=== PATIENT | female | born 1975 | race Hispanic/Latino ===

== ENCOUNTER 2016-08-03 07:44 | Observation (INO) | payer MEDICAID ==
[2016-08-03 07:48] VITALS: BMI 50.3
[2016-08-03] MEDS ORDERED: Sodium Chloride 0.9% 1,000 ML IV STA (08:11)
--- NOTE | 2016-08-03 08:12 | ED PDOC ---
HPI: Abdomen Time Seen by Provider: 08/03/16 07:46 Chief Complaint (Nursing): Abdominal Pain Chief Complaint (Provider): Abdominal Pain History Per: Patient History/Exam Limitations: no limitations Onset/Duration Of Symptoms: Hrs Current Symptoms Are (Timing): Still Present Severity: Moderate Location Of Pain/Discomfort: RLQ Quality Of Discomfort: "Pain" Associated Symptoms: Nausea, Vomiting, Diarrhea. denies: Fever, Loss Of Appetite, Back Pain, Urinary Symptoms Exacerbating Factors: None Alleviating Factors: None Additional Complaint(s): Patient is a 41 year old female with a history of asthma, presents to ED for evaluation of abdominal pain that began last night at 1800. Patient reports pain is RLQ with nausea, vomiting and diarrhea. Denies urinary changes, back pain, fever or chills. Notes she took no pain medication at home. Past Medical History Reviewed: Historical Data, Nursing Documentation, Vital Signs Vital Signs: Last Vital Signs Temp 98.9 F 08/03/16 12:53 Pulse 82 08/03/16 12:53 Resp 16 08/03/16 12:53 BP 132/87 08/03/16 12:53 Pulse Ox 96 08/03/16 12:53 - Medical History PMH: Asthma - Surgical History Surgical History: No Surg Hx - Family History Family History: States: Unknown Family Hx, Hypertension - Living Arrangements Living Arrangements: With Family - Home Medications Home Medications: Ambulatory Orders Medication Instructions Recorded Ibuprofen [Motrin] 600 mg PO TID PRN #30 tab 12/15/15 traMADol [Ultram] 50 mg PO Q8 PRN #12 tab 12/15/15 Cyclobenzaprine [Cyclobenzaprine 10 mg PO TID PRN #15 tab 04/14/16 HCl] Naproxen [Naprosyn] 500 mg PO BID PRN #15 tablet 04/14/16 Naproxen [Naprosyn] 500 mg PO BID PRN #15 tablet 08/03/16 Nitrofurantoin Macrocrystals 100 mg PO BID #14 cap 08/03/16 [Macrobid] - Allergies Allergies/Adverse Reactions: Allergies Allergy/AdvReac Type Severity Reaction Status Date / Time No Known Allergies Allergy Verified 12/15/15 18:41 Review of Systems ROS Statement: Except As Marked, All Systems Reviewed And Found Negative Constitutional: Negative for: Fever, Chills Cardiovascular: Negative for: Chest Pain Respiratory: Negative for: Shortness of Breath Gastrointestinal: Positive for: Nausea, Vomiting, Abdominal Pain, Diarrhea. Negative for: Hematochezia, Hematemesis Genitourinary Female: Negative for: Dysuria, Hematuria, Vaginal Bleeding, Pelvic Pain Musculoskeletal: Negative for: Back Pain Physical Exam - Reviewed Nursing Documentation Reviewed: Yes Vital Signs Reviewed: Yes - Physical Exam Appears: Positive for: Non-toxic, No Acute Distress Skin: Positive for: Normal Color, Warm Eye Exam: Positive for: Normal appearance Neck: Positive for: Normal, Painless ROM Cardiovascular/Chest: Positive for: Regular Rate, Rhythm. Negative for: Murmur Respiratory: Positive for: Normal Breath Sounds. Negative for: Respiratory Distress Gastrointestinal/Abdominal: Positive for: Soft (Obese), Tenderness (RLQ). Negative for: Distended, Guarding, Rebound Extremity: Positive for: Normal ROM Neurologic/Psych: Positive for: Alert, Oriented - Laboratory Results Result Diagrams: 08/03/16 08:45 08/03/16 08:45 - ECG O2 Sat by Pulse Oximetry: 95 (RA) Pulse Ox Interpretation: Normal - CT Scan/US CT abd/pelvis Other Rad Studies (CT/US): Radiology Report Reviewed (Unremarkable contrast enhanced CT of the abdomen and pelvis.) Pelvic ultrasound Other Rad Studies (CT/US): Radiology Report Reviewed (Examination markedly limited by habitus. The endometrium was not adequately visualized. No acute findings evident.) Medical Decision Making Medical Decision Making: Time: 804 Initial impression: Abdominal pain r/o appendicitis Initial plan: -- CMP -- Urine preg -- CBC -- PT/PTT -- NSF, Morphine and Zofran -- ED obs -- U/A Scribe Attestation: Documented by Yessenia Crandall acting as a scribe for Argenis Daniels MD MD Scribe Attestation: All medical record entries made by the Scribe were at my direction and personally dictated by me. I have reviewed the chart and agree that the record accurately reflects my personal performance of the history, physical exam, medical decision making, and the department course for this patient. I have also personally directed, reviewed, and agree with the discharge instructions and disposition.-- CT-abdomen ED OBSERVATION Date of observation admission: 08/03/16 Time of observation admission: 08:10 - Observation admission statement Patient is being placed in observation because:: Need for additional diagnostics to rule-out acute or life threatening condition - Goals of Observation Goals of observation are:: Improvement of pain Disposition - Clinical Impression Clinical Impression: UTI (urinary tract infection) - Disposition Disposition: Routine/Home Disposition Time: 12:34 Condition: STABLE
[2016-08-03 08:50] LABS: BASO % 0.4 % (0.0-2.0); EOS % 0.2 % (0.0-4.0); HEMATOCRIT 34.4 % (34.0-47.0); LYMPH # 1.1 K/uL (1.0-4.3); LYMPH % 28.5 % (20.0-40.0); MEAN CELL VOLUME 83.2 fl (81.0-99.0); MEAN CORPUSCULAR HEMOGLOBIN 29.4 pg (27.0-31.0); MEAN CORPUSCULAR HGB CONC 35.3 g/dL (33.0-37.0); MEAN PLATELET VOLUME 8.6 fl (7.2-11.7); MONO # 0.5 K/uL (0.0-0.8); MONO % 13.4 % (0.0-10.0); NEUT # 2.3 K/uL (1.8-7.0); NEUT % 57.5 % (50.0-75.0); NRBC % 0.1 % (0.0-0.0); RED CELL DISTRIBUTION WIDTH 14.4 % (11.5-14.5)
[2016-08-03 09:17] LABS: ALB/GLOB RATIO 1.3 (1.0-2.1); ALKALINE PHOSPHATASE 66 U/L (38-126); ALT/SGPT 66 U/L (9-52); AST/SGOT 62 U/L (14-36); BILIRUBIN,TOTAL 1.6 mg/dl (0.2-1.3); BLOOD UREA NITROGEN 9 mg/dl (7-17); CALCIUM 8.7 mg/dL (8.4-10.2); CARBON DIOXIDE 26 mmol/L (22-30); CHLORIDE 104 mmol/L (98-107); GFR AFRICAN-AMERICAN > 60; GLUCOSE,RANDOM 110 mg/dL (65-105); POTASSIUM 3.5 MMOL/L (3.6-5.0); SODIUM 138 mmol/l (132-148)
[2016-08-03] MEDS ORDERED: Sodium Chloride 0.9% 50 ML IV ONE (09:24)
[2016-08-03] MEDS ORDERED: Iohexol 300 100 ML IJ ONE (09:24)
[2016-08-03 09:42] LABS: RBC URINE 3 /hpf (0-3); URINE BACTERIA FEW (<OCC); URINE BILIRUBIN NEGATIVE (NEGATIVE); URINE BLOOD LARGE (NEGATIVE); URINE COLOR AMBER (YELLOW); URINE GLUCOSE (UA) NEG (Normal); URINE KETONE NEGATIVE (NEGATIVE); URINE LEUKOCYTE ESTERASE LARGE Leu/uL (Negative); URINE PROTEIN 100 mg/dL (NEGATIVE); URINE UROBILINOGEN 0.2-1.0 mg/dL (0.2-1.0); WBC URINE 121 /hpf (0-5)
--- NOTE | 2016-08-03 10:21 | CT ---
PROCEDURE: CT Abdomen and Pelvis with contrast HISTORY: RLQ pain COMPARISON: None. TECHNIQUE: Contrast dose: 100 cc Omnipaque 300 Radiation dose: Total exam DLP = unavailable This CT exam was performed using one or more of the following dose reduction techniques: Automated exposure control, adjustment of the mA and/or kV according to patient size, and/or use of iterative reconstruction technique. FINDINGS: LOWER THORAX: Unremarkable. LIVER: Unremarkable. No gross lesion or ductal dilatation. GALLBLADDER AND BILE DUCTS: Unremarkable. PANCREAS: Unremarkable. No gross lesion or ductal dilatation. SPLEEN: Unremarkable. ADRENALS: Unremarkable. No mass. KIDNEYS AND URETERS: Unremarkable. No hydronephrosis. No solid mass. VASCULATURE: Unremarkable. No aortic aneurysm. BOWEL: Unremarkable. No obstruction. No gross mural thickening. APPENDIX: Normal appendix. PERITONEUM: Unremarkable. No free fluid. No free air. LYMPH NODES: Unremarkable. No enlarged lymph nodes. BLADDER: Unremarkable. REPRODUCTIVE: Unremarkable. BONES: No acute fracture. OTHER FINDINGS: None. IMPRESSION: Unremarkable contrast enhanced CT of the abdomen and pelvis.
[2016-08-03 10:29] LABS: PARTIAL THROMBOPLASTIN TIME 32.3 SECONDS (23.3-32.5)
[2016-08-03] MEDS ORDERED: Potassium Chloride 20 mEq ER Tab PO STA (12:34)
[2016-08-03] MEDS ORDERED: Potassium Chloride 20 mEq ER Tab PO ONE (12:37)
[2016-08-03 12:53] VITALS: BP 132/87; PULSE 82; RESP 16; TEMP 98.9
--- NOTE | 2016-08-03 13:40 | US ---
HISTORY: RLQ pain COMPARISON: No prior ultrasound available for direct comparison. CT of the abdomen and pelvis with IV contrast performed 08/03/16 TECHNIQUE: Pelvis/transvaginal ultrasound FINDINGS: Examination limited by habitus. UTERUS: Measures 10.6 x 6.0 x 5.1 cm. Anteverted. ENDOMETRIUM: Not well-visualized. CERVIX: Nabothian cyst measuring approximately 1.3 cm. RIGHT OVARY: Measures 3.0 x 2.7 x 1.4 cm. Blood flow is demonstrated. LEFT OVARY: Measures 2.4 x 2.3 x 1.6 cm. Blood flow is demonstrated. FREE FLUID: No significant free fluid noted. OTHER FINDINGS: None. IMPRESSION: Examination markedly limited by habitus. The endometrium was not adequately visualized. No acute findings evident.
[2016-08-13 09:44] VITALS: O2SAT 95
== END 2016-08-03 12:35 | disposition home or self-care (01) ==
LOC: H.ER 07:44 → H.EROBSV 08:11
PROVIDERS: ADMIT Emergency Medicine; ATTEND Emergency Medicine
DX: R10.31 Right lower quadrant pain (principal); J45.909 Unspecified asthma, uncomplicated

== ENCOUNTER 2017-02-06 10:50 | Day surgery (SDC) | payer MEDICAID ==
[2017-02-02 11:01] VITALS: BMI 53.7
[2017-02-06] MEDS ORDERED: Lactated Ringer's 1,000 ML IV ONE (11:30)
[2017-02-06] MEDS ORDERED: Bupivacaine 0.5% Inj(30mL) ONE (12:26)
[2017-02-06] MEDS ORDERED: Dexamethasone 4 mg/1 ml ONE ×2 (12:26→18:27)
[2017-02-06] MEDS ORDERED: Lidocaine 1% Inj (20ml) ONE (12:26)
[2017-02-06] MEDS ORDERED: ceFAZolin IV 1 gm in Dextrose 2 GM/100 ML BAG IVPB ONE (12:26)
[2017-02-06] MEDS ORDERED: Bupivacaine 0.5% Inj(30mL) IJ ONE (12:29)
[2017-02-06] MEDS ORDERED: ceFAZolin IV 2 gm in Dextrose 2 GM/50 ML BAG IVPB ONE (12:29)
[2017-02-06] MEDS ORDERED: Sodium Chloride 0.9% 1,000 ML IV SCH (12:30)
--- NOTE | 2017-02-06 12:35 | CP.PCM.PN ---
Subjective - Date & Time of Evaluation Date of Evaluation: 02/06/17 Time of Evaluation: 12:33 - Subjective Subjective: 41 y/o female seen in SDS prior to right foot surgery. Pt confirms NPO status. Pt feels well today and denies F/C/N/V/CP/SOB. PMH: asthma PSH: eye surgery >30 yrs ago all: NKDA Social: denies EtOH, cigarette or illicit drug use Objective - Vital Signs/Intake and Output Vital Signs (last 24 hours): Temp Pulse Resp BP Pulse Ox 98.8 F 64 20 125/75 97 02/06/17 11:11 02/06/17 11:14 02/06/17 11:11 02/06/17 11:11 02/06/17 11:11 - Medications Medications: Current Medications Bupivacaine HCl (Marcaine 0.5%) 30 ml IJ ONCE ONE Stop: 02/06/17 12:30 Cefazolin Sodium 2 gm/ Sodium (Chloride) 100 mls @ 100 mls/hr IVPB ONCE ONE PRN Reason: Protocol Stop: 02/06/17 13:28 Sodium Chloride (Sodium Chloride 0.9%) 1,000 mls @ 1,000 mls/hr IV .Q1H NEPTALI Stop: 02/07/17 12:29 - Constitutional Appears: Well, Non-toxic, No Acute Distress - Extremities Exam Additional comments: RLE focused exam: Vasc:DP and PT pulses palpable 2/4, CFT < 3 seconds to all digits,Skin temperature warm to warm from proximal to distal. Localized edema non pitting to plantar medial tubercle Neuro:Gross sensation intact Derm:Skin is well hydrated. Fat globules noted to plantar medial tubercle. No open lesions noted. Nails 1-5 b/l WNL for thickness and length. Ortho: Moderate to severe tenderness on palpation of plantar medial tubercle, as well as plantar and posterior heel - Neurological Exam Neurological Exam: Alert, Awake, Oriented x3 - Psychiatric Exam Psychiatric exam: Normal Affect, Normal Mood Assessment and Plan - Assessment and Plan (Free Text) Assessment: 41 y/o female in SDS prior to right foot surgery with ultrasound guided plantar fasciotomy and endoscopic gastrocnemius recession Plan: Pt was seen and examined in [facility] Pt NPO status was confirmed All Pre-op testing and clearance was in the chart Pt has exhausted all conservative treatment at this time and is opting for surgical intervention Pt was explained procedure and post-operative course All pt's questions were answered to satisfaction No guarantees were made Pt understands all risks, benefits and complications of procedure Pt will follow-up with Dr. Darling in [facility] podiatry clinic in 1 week
--- NOTE | 2017-02-06 12:37 | CP.SDSHP ---
Same Day Surgery H & P - History Proposed Procedure: right foot plantar fasciotomy and endoscopic gastrocnemius recession Pre-Op Diagnosis: right foot plantar fasciitis, Achilles tendinitis with equinus deformity - Previous Medical/Surgical History Pulmonary: Asthma Pain: 4.Moderate Pain Previous Surgical History: eye surgery 30 yrs ago - Allergies Allergies: Allergies mustard Allergy (Verified 08/01/16 14:40) - Physical Exam General Appearance: morbidly obese female Vital Signs: Vital Signs 02/06/17 02/06/17 11:11 11:14 Temperature 98.8 F Pulse Rate 64 64 Respiratory 20 Rate Blood Pressure 125/75 O2 Sat by Pulse 97 Oximetry Mental Status: Alert & Oriented x3 - {Optional Preform as Required} Integument: Other (fat globules noted to right plantar medial tubercle) Ortho: Other (pain to right foot plantar medial tubercle) - Impression Impression: Pt was seen and examined in SDS. Pt NPO status was confirmed. All Pre-op testing and clearance was in the chart. Pt has exhausted all conservative treatment at this time and is opting for surgical intervention. Pt was explained procedure and post-operative course. All pt's questions were answered to satisfaction. No guarantees were made. Pt understands all risks, benefits and complications of procedure. Pt will follow-up with Dr. Darling in podiatry clinic in 1 week - Date & Time Date: 02/06/17 Time: 12:50 Short Stay Discharge - Short Stay Discharge Admitting Diagnosis/Reason for Visit: M72.2 M76.60 Disposition: HOME/ ROUTINE Referrals: Seth Sweeney MD [Primary Care Provider] - Instructions: RICE Therapy (GEN), Cephalexin (By mouth), Oxycodone/ Acetaminophen (By mouth) Additional Instructions (Diet, Activity): --Patient in good/stable condition for discharge home -Pt to resume medications per medical reconciliation -Resume regular diet. Please keep dressing clean, dry, & intact to surgical site, use plastic bag over bandage for Showering -Wear post op shoe at all times when ambulating -Call clinic if you seesigns of infection (redness, swelling, malodor) -Please make an appointment to see Dr. Darling in clinic within 1 week for post -op check. Progress Note/Discharge Note with Instructions: - Patient evaluated bedside in recovery s/p surgical procedure. - After surgical procedure patient in NAD - (+) Void, (+) Appetite - Capillary refill time <3s and NVSI intact. - Patient denies complaints at this time - Post operative instructions and plan of care explained to patient at length. - Pt. acknowledges understanding. - Patient stable for DC per podiatric surgery
[2017-02-06] MEDS ORDERED: Propofol 10 mg/ml Inj (20 ML) ONE (12:55)
[2017-02-06] MEDS ORDERED: Midazolam 2 MG/2 ML VIAL ONE (12:55)
[2017-02-06] MEDS ORDERED: Rocuronium 10 mg/ml (5 ml) ONE (17:16)
[2017-02-06] MEDS ORDERED: Neostigmine Methylsulfate 3mg/3ml Syringe IV ONE (17:17)
[2017-02-06] MEDS ORDERED: Succinylcholine 200 mg/10 ml Inj IV ONE (17:17)
[2017-02-06] MEDS ORDERED: Neostigmine Methylsulfate 2 MG/2 ML ML IV ONE (18:12)
[2017-02-06] MEDS ORDERED: HYDROmorphone 0.5 mg/0.5 ml ISec IVP PRN (18:51)
[2017-02-06] MEDS ORDERED: Trimethobenzamide 200 mg/2 mL Inj IM ONE (18:52)
[2017-02-06] MEDS ORDERED: Lactated Ringer's 1,000 ML IV SCH (19:00)
--- NOTE | 2017-02-06 19:11 | PCM.SURG1 ---
Surgeon's Initial Post Op Note - Surgeon's Notes Surgeon: Dr. Ambrose Darling [employer]: Dr. Martine Shen PGY-2, Dr. Yumiko Puri PGY-2 Type of Anesthesia: General Endo, Local Anesthesia Administered By: Dr. Starks/Dr. Iglesias Pre-Operative Diagnosis: right foot plantar fasciitis, Achilles tendinitis with Equinus deformity Operative Findings: see operative report. I: 20cc 0.5% Marcaine plain, 2cc 1:1 mix of 0.5% Marcaine plain and 4mg/mL Dexamethasone plain Post-Operative Diagnosis: same Operation Performed: right foot ultrasound guided plantar fasciotomy with endoscopic gastrocnemius recession Specimen/Specimens Removed: none Estimated Blood Loss: EBL {In ML}: 0 Blood Products Given: N/A Drains Used: No Drains Post-Op Condition: Good Date of Surgery/Procedure: 02/06/17 Time of Surgery/Procedure: 17:20
[2017-02-06] MEDS ORDERED: Oxycodone/Acetaminophen 5/325 mg Tab PO PRN ×2 (19:12)
[2017-02-06 19:50] VITALS: O2SAT 96
[2017-02-06 20:35] VITALS: BP 131/76; PULSE 70; RESP 20; TEMP 98.5
--- NOTE | 2017-02-08 12:00 | OP ---
PROCEDURE DATE: 02/06/17 PRIMARY SURGEON: Dr. Ambrose Darling. ASSISTANTS: Dr. Martine Esteban, PGY-2; Yumiko Puri, PGY-2 ANESTHESIOLOGIST: Dr. Starks. TYPE OF ANESTHESIA: General intubation. PREOPERATIVE DIAGNOSES: 1. Right foot plantar fasciitis. 2. Right foot Achilles tendinitis. 3. Right foot equinus ankle deformity, acquired. POSTOPERATIVE DIAGNOSES: 1. Right foot plantar fasciitis. 2. Right foot Achilles tendinitis. 3. Right foot equinus ankle deformity, acquired. PROCEDURE PERFORMED: 1. Right foot ultrasound plantar fasciotomy. 2. Right leg gastrocnemius recession. INDICATIONS: The patient is a 41-year-old female with the above stated diagnoses. The patient has exhausted all conservative outpatient treatment options and now is in need of surgical intervention. The patient signed the surgical consent after careful explanation of risks, benefits, complications, and potential alternatives to the proposed surgical procedures. No guarantees were either given or implied. The patient's questions were answered to her satisfaction. PREPARATION: The patient's n.p.o. status was confirmed prior to bringing the patient to the operating room. The patient was brought to the operating room and placed on the operating room table in a prone position after general anesthesia was achieved. Once in a prone position, the patient received a thigh level pneumatic tourniquet on the right lower extremity, set at 350 mmHg to be inflated once the procedure began. The patient's right lower extremity was then prepped and draped in the usual sterile manner, tourniquet was inflated and the procedure began. PROCEDURE 1: Right foot endoscopic gastrocnemius recession Attention was then directed to the posterior aspect of the patient's right calf where the muscle belly of the gastrocnemius muscle heads were appreciated. This muscle partition was palpated down to the approximate area of the myotendinous junction, which was then marked. Using a sterile intraoperative ruler, skin shayy was placed 12-cm proximal to the Achilles tendon insertion, 2 points were palpated and bisected, this besection was used as midline point for adequate gastrocnemius level recession. At this time, in line with this marked point and on the medial aspect of the gastroc myotendinous junction, a 1-cm linear longitudinal incision was made using a #15 blade to acquire a medial portal. At this time, obturator and cannula apparatus from [employer] Endo[employer] tray was introduced and passed through the operative field. After blunt dissection, hemostat was used to expand portal and puncture crural fascia. With obturator and cannula apparatus, cannula was passed from crural fascia junction to underlying gastrocnemius fascia and passed transversely through the leg to create a lateral prominence on the lateral aspect of the patient's right lower extremity. With prominence of cannula noted, a superficial 1-cm linear longitudinal incision was made using #15 blade with care being taken to avoid all vital neurovascular structures. Through this incision crural fascia was punctured through blunt dissection with obturator to allow transverse canal extending from medial myotendinous junction to lateral myotendinous junction. At this time, obturator was removed, cannula was left in place, and a 4-0-mm arthroscope was passed from medial to lateral to allow visualization of soft tissue structures. At this time, cannula was aligned to allow adequate visualization of gastrocnemius fascia. Evaluation of posterior deep subcutaneous structures was performed to confirm position of sural nerve and small saphenous vein, not visualized due to amount of density of subcutaneous fat, but it was noted that with the presence of subcutaneous fat and no direct visualization of sural or small saphenous vein, neurovascular bundle was protected. At this time, attention was redirected to the gastrocnemius fascia where longitudinal bands were evaluated medially to laterally. At this time, hook blade from [employer] EndoBlade system was passed through lateral portal and passed through medial border of gastrocnemius fascia using bladed edge. Through preset cannula track, a longitudinal transverse fasciotomy was performed and gastroc recession was achieved with underlying muscle belly visualized upon transection of fascia. At this time, visualization was confirmed to confirm that no fibrous bands remained, which was noted to be the case. The incision site was then flushed with copious amounts of sterile saline. Medial and lateral portals were reapproximated using Prolene suture in a simple type fashion. Evaluation of gastrocnemius recession at level of ankle joint was found to be adequate with greatly improved ankle joint dorsiflexion evaluated. PROCEDURE 2: Right foot ultrasound plantar fasciotomy. Attention was then directed to the plantar aspect to the right foot where under ultrasound guidance, the medial plantar calcaneal tubercle was appreciated along with medial plantar fascial band was appreciated. Upon ultrasound evaluation, significantly thickened medial band of plantar fascia was appreciated along the proximal one-third segment of the plantar fascia extending from medial plantar tubercle attachment. At this time, Tenex TX-2 handpiece was introduced to surgical field through a 0.5-cm longitudinal incision made at the level of the medial plantar tubercle. This incision was then extended down through the subcutaneous tissues layers with blunt dissection and medial border of the medial plantar fascial band was palpated, TX-2 handpiece was then introduced and ultrasound debridement/fasciotomy commenced, total ultrasonic energy time delivered was 3 minutes and 5 seconds. Incision site was then flushed with copious amounts of sterile saline. Skin was reapproximated using 4-0 Proline in simple suture type fashion. At this time, the patient received a total of 2 mL of 1:1 mixture 4 mg of dexamethasone per mL to 0.5% Marcaine plane in a local block type fashion to the medial plantar fascial band. The patient then received a total of 20 mL of 0.5% Marcaine plain delivered to all three incisional portals and all three surgical sites, note that medial and lateral portals of endoscopic gastrocnemius recession are counted as 2 surgical sites. POSTOPERATIVE CONDITION: The patient tolerated the anesthesia and procedure well and was escorted to the recovery room with vital signs stable and neurovascular status intact to the right lower extremity. The patient had no complaints of pain, nor complications. The patient will follow up on outpatient basis. Martine Esteban DPM Ambrose Darling DPM [facility]
== END 2017-02-06 22:20 | disposition home or self-care (01) ==
LOC: H.OPSURG 10:50 → H.MEDSURG1 20:30 → H.OPSURG 22:20
PROVIDERS: ATTEND Podiatrist Foot & Ankle Surgery
DX: M72.2 Plantar fascial fibromatosis (principal); M76.60 Achilles tendinitis, unspecified leg; J45.909 Unspecified asthma, uncomplicated; E66.9 Obesity, unspecified
CPT/HCPCS: 28008; 28060; 97161; G8978; G8979; G8980; J0330; J0690; J1100; J1885; J2001; J2250; J2405; J2704; J2710; J2765; J3010; J7030; J7040; J7120

== ENCOUNTER 2017-02-27 09:10 | Emergency (ER) | payer MEDICAID ==
[2017-02-27 09:10] VITALS: BMI 53.7
[2017-02-27 09:28] VITALS: BP 132/77; PULSE 71; RESP 18; TEMP 98; O2SAT 99
[2017-02-27] MEDS ORDERED: Albuterol-Ipratrop 3 mg / 0.5 (3 ml) UD INH STA (10:49)
[2017-02-27] MEDS ORDERED: Albuterol-Ipratrop 3 mg / 0.5 (3 ml) UD ONE (11:01)
--- NOTE | 2017-02-27 11:32 | ED PDOC ---
HPI: CCC, URI, Sore Throat Time Seen by Provider: 02/27/17 09:33 Chief Complaint (Nursing): Flu-like Symptoms Chief Complaint (Provider): Flu-like symptoms History Per: Patient History/Exam Limitations: no limitations Onset/Duration Of Symptoms: Days (x3) Current Symptoms Are (Timing): Still Present Location Of Pain: Ear(s) (left), Throat Associated Symptoms: Sore Throat, Cough, Other (left ear pain, and nasal drainage) Ear Symptoms: Left: Ear Pain Pain Scale Rating Of: 3 Additional Complaint(s): Afshan Max is a 41 year old female, with a past medical history of asthma, who presents to the emergency department complaining of sore throat, cough, left ear pain and runny nose onset for x3 days. Patient reports taking advil with no relief of symptoms. She denies any fever or chills. No further medical complaints. PMD: None provided. Past Medical History Reviewed: Historical Data, Nursing Documentation, Vital Signs Vital Signs: Last Vital Signs Temp 98 F 02/27/17 09:26 Pulse 71 02/27/17 09:26 Resp 18 02/27/17 09:26 BP 132/77 02/27/17 09:26 Pulse Ox 99 02/27/17 13:29 - Medical History PMH: Asthma, Migraine Denies: Chronic Kidney Disease - Family History Family History: States: Hypertension - Social History Current smoker - smoking cessation education provided: No Alcohol: None Drugs: Denies - Immunization History Hx Tetanus Toxoid Vaccination: No Hx Influenza Vaccination: No Hx Pneumococcal Vaccination: No - Home Medications Home Medications: Ambulatory Orders Medication Instructions Recorded Ibuprofen [Motrin] 600 mg PO TID PRN #30 tab 12/15/15 Nitrofurantoin Macrocrystals 100 mg PO BID #14 cap 08/03/16 [Macrobid] Loratadine [Claritin] 10 mg PO DAILY PRN #10 tab 02/27/17 - Allergies Allergies/Adverse Reactions: Allergies Allergy/AdvReac Type Severity Reaction Status Date / Time mustard Allergy Verified 08/01/16 14:40 Review of Systems ROS Statement: Except As Marked, All Systems Reviewed And Found Negative Constitutional: Negative for: Fever, Chills ENT: Positive for: Ear Pain (left), Nose Discharge, Throat Pain Respiratory: Positive for: Cough Physical Exam - Reviewed Nursing Documentation Reviewed: Yes Vital Signs Reviewed: Yes - Physical Exam Appears: Positive for: Well, Non-toxic, No Acute Distress Head Exam: Positive for: ATRAUMATIC, NORMAL INSPECTION Skin: Positive for: Normal Color, Dry Eye Exam: Positive for: Normal appearance, EOMI, PERRL ENT: Positive for: Normal ENT Inspection Neck: Positive for: Normal, Painless ROM, Supple Cardiovascular/Chest: Positive for: Regular Rate, Rhythm. Negative for: Murmur Respiratory: Positive for: Normal Breath Sounds. Negative for: Respiratory Distress Gastrointestinal/Abdominal: Positive for: Bowel Sounds, Soft. Negative for: Tenderness, Guarding, Rebound Back: Positive for: Normal Inspection. Negative for: L CVA Tenderness, R CVA Tenderness Extremity: Positive for: Normal ROM. Negative for: Deformity, Swelling Neurologic/Psych: Positive for: Alert, Oriented - ECG O2 Sat by Pulse Oximetry: 99 (RA) Pulse Ox Interpretation: Normal Medical Decision Making Medical Decision Making: Initial Impression: URI Initial Plan: --Urine --Ches two views (PA/LAT) [RAD] --Duoneb 3ml INH --Zithromax 500 mg PO --Peak flow pre/post Tx --reevaluation 1240 CXR FINDINGS: LUNGS: No active pulmonary disease. PLEURA: No significant pleural effusion identified. No pneumothorax apparent. CARDIOVASCULAR: Heart is enlarged. OSSEOUS STRUCTURES: No significant abnormalities. VISUALIZED UPPER ABDOMEN: Normal. OTHER FINDINGS: None. IMPRESSION: No acute infiltrates. . Cardiomegaly. Scribe Attestation: Documented by Henrique Lee, acting as a scribe for Argenis Daniels MD Provider Scribe Attestation: All medical record entries made by the Scribe were at my direction and personally dictated by me. I have reviewed the chart and agree that the record accurately reflects my personal performance of the history, physical exam, medical decision making, and the department course for this patient. I have also personally directed, reviewed, and agree with the discharge instructions and disposition. Disposition - Clinical Impression Clinical Impression: URI (upper respiratory infection) - Disposition Disposition: Routine/Home Disposition Time: 13:35 Condition: STABLE Additional Instructions: FOLLOW-UP WITH PMD WITHIN 2 DAYS FOR REEVALUATION. Prescriptions: Loratadine [Claritin] 10 mg PO DAILY PRN #10 tab PRN Reason: Allergy Symptoms Instructions: Upper Respiratory Infection (ED) Forms: [employer] ([place])
--- NOTE | 2017-02-27 12:41 | RAD ---
HISTORY: Cough COMPARISON: Comparison made with prior study dated 04/20/2014 TECHNIQUE: Chest PA and lateral FINDINGS: LUNGS: No active pulmonary disease. PLEURA: No significant pleural effusion identified. No pneumothorax apparent. CARDIOVASCULAR: Heart is enlarged. OSSEOUS STRUCTURES: No significant abnormalities. VISUALIZED UPPER ABDOMEN: Normal. OTHER FINDINGS: None. IMPRESSION: No acute infiltrates. . Cardiomegaly.
--- NOTE | 2017-03-02 19:36 | CARD ---
APPROVED REPORT EKG Measurement Heart [id number] <Conclusion> Normal sinus rhythm Normal ECG
== END 2017-02-27 13:50 | disposition home or self-care (01) ==
LOC: H.ER 09:10
DX: J06.9 Acute upper respiratory infection, unspecified (principal); J45.909 Unspecified asthma, uncomplicated

== ENCOUNTER 2017-03-17 08:26 | Emergency (ER) | payer MEDICAID ==
[2017-03-17 08:32] VITALS: BP 158/77; PULSE 82; RESP 16; TEMP 97.9; O2SAT 98
[2017-03-17 08:33] VITALS: BMI 53.1
--- NOTE | 2017-03-17 09:42 | CP.PCM.CON ---
History of Present Illness - History of Present Illness History of Present Illness: Podiatry Consult Note - Dr. Darling 41 year old female patient seen and evaluated in ED for right leg swelling and redness of 1.5 weeks duration, and pain to right foot. Patient hemodynamically stable and NAD. Denies any trauma to RLE. Patient states she was recently seen at ED for her right leg swelling and redness and was given a prescription for Augmentin x1 week. Patient states she has completed the prescription but is still complaining of right leg redness; denies pain to the area. Patient also complains of pain on the top of her right foot; denies any trauma, change in shoegear, or change in activity. Of note, patient had a plantar fasciotomy with gastrocnemius recession by building specialist Dr. Darling in January however patient denies any issues to surgical site. Patient denies N/V/F/D/C/SOB/calf pain. PMH asthma, migraines PSH: none FH: diabetes, cancer SH: denies ETOH, tobacco use, illicit drug use All: mustard (hives) Review of Systems - Review of Systems All systems: reviewed and no additional remarkable complaints except (as per HPI ) Past Patient History - Infectious Disease Hx of Infectious Diseases: None - Past Medical History & Family History Past Medical History?: No - Past Social History Smoking Status: Never Smoked - CARDIAC Hx Cardiac Disorders: No - PULMONARY Hx Asthma: Yes - NEUROLOGICAL Hx Migraine: Yes - HEENT Hx HEENT Problems: No - RENAL Hx Chronic Kidney Disease: No - ENDOCRINE/METABOLIC Hx Endocrine Disorders: No - HEMATOLOGICAL/ONCOLOGICAL Hx Blood Disorders: No - INTEGUMENTARY Hx Dermatological Problems: No - MUSCULOSKELETAL/RHEUMATOLOGICAL Hx Musculoskeletal Disorders: No - GASTROINTESTINAL Hx Gastrointestinal Disorders: No - GENITOURINARY/GYNECOLOGICAL Hx Genitourinary Disorders: No - PSYCHIATRIC Hx Psychophysiologic Disorder: No Hx Substance Use: No - SURGICAL HISTORY Hx Surgeries: Yes Other/Comment: right lower leg/foot sx (02/06/17) - ANESTHESIA Hx Anesthesia: Yes Hx Anesthesia Reactions: No Hx Malignant Hyperthermia: No Meds Home Medications: Home Medication List Medication Instructions Recorded Confirmed Type Naproxen [Naprosyn] 500 mg PO BID PRN #15 tablet 03/17/17 Rx Allergies/Adverse Reactions: Allergies Allergy/AdvReac Type Severity Reaction Status Date / Time mustard Allergy RASH Verified 03/17/17 08:47 Physical Exam - Constitutional Appears: Well, Non-toxic, No Acute Distress - Extremities Exam Additional comments: VASC: DP and PT pulses palpable b/l. CFT brisk. Temperature gradient WNL. Mild nonpitting edmea noted to bilateral LE, R>L. Non-pitting edema noted to dorsolateral right foot. No increase in warmth to RLE. NEURO: Gross sensation intact bilaterally. DERM: No open lesions noted. No ecchymosis noted. Very mild nonblanchable erythema noted to RLE. Well healed cicatrices to RLE plantar heel and calf. Skin appears well hydrated. ORTHO: Tenderness to palpation dorsolateral right foot. Muscle strength 5/5 for all dorsiflexors, plantarflexors, inverters, and everters b/l. No palpable cord RLE. No pain on right calf squeeze. - Neurological Exam Neurological exam: Alert, Oriented x3 - Psychiatric Exam Psychiatric exam: Normal Affect, Normal Mood Results - Vital Signs Recent Vital Signs: Last Vital Signs Temp 97.9 F 03/17/17 08:31 Pulse 82 03/17/17 08:31 Resp 16 03/17/17 08:31 BP 158/77 H 03/17/17 08:31 Pulse Ox 98 03/17/17 08:31 - Labs Result Diagrams: 03/17/17 10:54 03/17/17 10:54 Assessment & Plan - Assessment and Plan (Free Text) Assessment: 41 year old female with RLE swelling and right foot pain Plan: Patient seen and evaluated Discussed with attending, Dr. Darling Afebrile, absent leukocytosis (WBC 7.7) Venous duplex from 03/11 negative for DVT R foot XR negative for acute fracture Patient possibly has stress fracture to R foot not yet evident on XR, will be treated as such Mcmillan dressing applied to RLE; patient to remain NWB RLE with the assistance of crutches Recommend RICE therapy Recommend naproxen prn pain Stable per podiatry standpoint Thank you for the consult, please reconsult podiatry as needed
--- NOTE | 2017-03-17 10:53 | RAD ---
PROCEDURE: Right Foot Radiographs. HISTORY: Dorsolateral pain COMPARISON: Comparison made with prior radiographs of the right tibia/ fibula dated 12/15/2015. FINDINGS: BONES: No evidence of acute displaced fracture nor dislocation. The osseous structures appear intact. . Note that evaluation slightly limited due to on mild hammertoe deformities of the 2nd 3rd and 4th digits. The the the. Prominent plantar surface calcaneal enthesophyte. Tiny posterior calcaneal enthesophyte. JOINTS: Mild degenerative changes PIP and of DIP joints. SOFT TISSUES: Questionable mild dorsal soft tissue swelling OTHER FINDINGS: None. IMPRESSION: No evidence of acute displaced fracture nor dislocation. Questionable mild dorsal soft tissue swelling.
[2017-03-17 11:01] LABS: BASO % 0.5 % (0.0-2.0); EOS # 0.1 K/uL (0.0-0.7); EOS % 0.9 % (0.0-4.0); HEMOGLOBIN 11.7 g/dL (12.0-16.0); LYMPH # 1.7 K/uL (1.0-4.3); LYMPH % 21.9 % (20.0-40.0); MEAN CELL VOLUME 85.2 fl (81.0-99.0); MEAN PLATELET VOLUME 8.6 fl (7.2-11.7); MONO # 0.6 K/uL (0.0-0.8); MONO % 7.3 % (0.0-10.0); NEUT # 5.3 K/uL (1.8-7.0); NEUT % 69.4 % (50.0-75.0); RBC 4.05 Mil/uL (3.80-5.20); RED CELL DISTRIBUTION WIDTH 13.4 % (11.5-14.5); WHITE BLOOD COUNT 7.7 K/uL (4.8-10.8)
[2017-03-17 11:16] LABS: BLOOD UREA NITROGEN 12 mg/dl (7-17); CALCIUM 9.2 mg/dL (8.4-10.2); GFR AFRICAN-AMERICAN > 60; GFR NON-AFRICAN AMERICAN > 60
== END 2017-03-17 13:18 | disposition home or self-care (01) ==
LOC: H.ER 08:26
DX: M79.671 Pain in right foot (principal); R22.41 Localized swelling, mass and lump, right lower limb; J45.909 Unspecified asthma, uncomplicated; Z83.3 Family history of diabetes mellitus

== ENCOUNTER 2017-03-25 08:22 | Emergency (ER) | payer OTHER ==
[2017-03-25 08:28] VITALS: BMI 35.4
[2017-03-25 08:29] VITALS: PULSE 71; RESP 16; TEMP 97.6; O2SAT 100
[2017-03-25] MEDS ORDERED: Sodium Chloride 0.9% 500 ML IV STA (08:57)
[2017-03-25 10:03] LABS: BASO % 0.2 % (0.0-2.0); EOS # 0.1 K/uL (0.0-0.7); EOS % 1.7 % (0.0-4.0); HEMOGLOBIN 12.3 g/dL (12.0-16.0); LYMPH # 1.8 K/uL (1.0-4.3); LYMPH % 27.3 % (20.0-40.0); MEAN CELL VOLUME 85.8 fl (81.0-99.0); MEAN CORPUSCULAR HEMOGLOBIN 29.6 pg (27.0-31.0); MEAN CORPUSCULAR HGB CONC 34.5 g/dL (33.0-37.0); MEAN PLATELET VOLUME 9.1 fl (7.2-11.7); MONO # 0.5 K/uL (0.0-0.8); MONO % 7.7 % (0.0-10.0); NEUT # 4.1 K/uL (1.8-7.0); NEUT % 63.1 % (50.0-75.0); NRBC % 0.2 % (0.0-0.0); RBC 4.16 Mil/uL (3.80-5.20); RED CELL DISTRIBUTION WIDTH 13.8 % (11.5-14.5); WHITE BLOOD COUNT 6.5 K/uL (4.8-10.8)
[2017-03-25 10:15] LABS: ALB/GLOB RATIO 1.2 (1.0-2.1); ALBUMIN 4.2 g/dL (3.5-5.0); ALT/SGPT 52 U/L (9-52); AST/SGOT 30 U/L (14-36); BLOOD UREA NITROGEN 11 mg/dl (7-17); CALCIUM 9.1 mg/dL (8.4-10.2); GFR AFRICAN-AMERICAN > 60; GFR NON-AFRICAN AMERICAN > 60
--- NOTE | 2017-03-25 10:46 | ED PDOC ---
Lower Extremity Pain/Injury Time Seen by Provider: 03/25/17 08:25 Chief Complaint (Nursing): Lower Extremity Problem/Injury Chief Complaint (Provider): Swollen Right Foot History Per: Patient History/Exam Limitations: no limitations Onset/Duration Of Symptoms: Days Current Symptoms Are (Timing): Still Present Additional Complaint(s): 41 year old female presents to the ED stating that her right foot is swollen. The patient states that her symptoms began around March 13 and although the foot is swollen she feels no pain. She reports that she was seen at [facility], diagnosed with cellulitis and prescribed augmentin. She states that her symptoms have not improved since then. Patient further states that she has dopplers performed 2 weeks ago and they were negative. Denies numbness, tingling , cough, calf pain, fever, chest pain. Seen by podiatry at clinic and wrapped and unwrapped leg. No dyspnea. Past Medical History Reviewed: Historical Data, Nursing Documentation, Vital Signs Vital Signs: Last Vital Signs Temp 97.6 F 03/25/17 08:28 Pulse 71 03/25/17 08:28 Resp 16 03/25/17 08:28 BP 179/63 H 03/25/17 08:28 Pulse Ox 100 03/25/17 08:28 - Medical History PMH: Asthma, Migraine Denies: Chronic Kidney Disease - Surgical History Other surgeries: foot surgery - Family History Family History: States: Unknown Family Hx, Hypertension - Social History Current smoker - smoking cessation education provided: No Ex-Smoker (has not smoked in the last 12 months): No Alcohol: None Drugs: Denies - Immunization History Hx Tetanus Toxoid Vaccination: No Hx Influenza Vaccination: No Hx Pneumococcal Vaccination: No - Home Medications Home Medications: Ambulatory Orders Medication Instructions Recorded Naproxen [Naprosyn] 500 mg PO BID PRN #15 tablet 03/17/17 - Allergies Allergies/Adverse Reactions: Allergies Allergy/AdvReac Type Severity Reaction Status Date / Time mustard Allergy RASH Verified 03/17/17 08:47 Review of Systems ROS Statement: Except As Marked, All Systems Reviewed And Found Negative Constitutional: Negative for: Fever, Chills Cardiovascular: Negative for: Chest Pain Musculoskeletal: Positive for: Leg Pain, Foot Pain, Other (right foot swelling) Neurological: Negative for: Numbness Physical Exam - Reviewed Nursing Documentation Reviewed: Yes Vital Signs Reviewed: Yes - Physical Exam Appears: Positive for: Non-toxic, No Acute Distress Head Exam: Positive for: ATRAUMATIC, NORMAL INSPECTION, NORMOCEPHALIC Skin: Positive for: Normal Color, Warm, Dry. Negative for: Rash Eye Exam: Positive for: Normal appearance, EOMI, PERRL. Negative for: Nystagmus ENT: Positive for: Normal ENT Inspection. Negative for: Nasal Congestion, Tonsillar Exudate Neck: Positive for: Normal, Painless ROM, Supple Cardiovascular/Chest: Positive for: Regular Rate, Rhythm, Chest Non Tender. Negative for: Tachycardia Respiratory: Positive for: Normal Breath Sounds. Negative for: Wheezing, Respiratory Distress Pulses-Dorsalis Pedis (L): 2+ Pulses-Dorsalis Pedis (R): 2+ Pulses-Post. Tibialis (L): 2+ Pulses-Post. Tibialis (R): 2+ Gastrointestinal/Abdominal: Positive for: Normal Exam, Bowel Sounds. Negative for: Soft, Tenderness, Guarding, Rebound Back: Positive for: Normal Inspection. Negative for: L CVA Tenderness, R CVA Tenderness Extremity: Positive for: Normal ROM (normal ROM of right foot), Swelling ( erythema; swelling and redness below right knee; right foot 1+ pitting edema;), Other ( no swelling below left knee). Negative for: Tenderness, Deformity Neurologic/Psych: Positive for: Alert, Oriented - Laboratory Results Result Diagrams: 03/25/17 09:40 03/25/17 09:40 Interpretation Of Abn Labs: no acute - ECG O2 Sat by Pulse Oximetry: 100 (RA) Pulse Ox Interpretation: Normal - Progress ED Course And Treament: 1220: Stable. AAOx3. Podiatry saw pt. and reviewed labs. They want pt. leg to be wrapped in lidia wrap and surgery boot. Fu with pcp and podiatry. Medical Decision Making Medical Decision Makin Initial Impression 41 y/o female presenting with right foot swelling Initial Plan: * NS 500 mls IV 100mls/hr * Reevaluation Documented by Beth Camilo acting as a scribe for Jim Calixto MD. All medical record entries made by the Scribe were at my direction and personally dictated by me. I have reviewed the chart and agree that the record accurately reflects my personal performance of the history, physical exam, medical decision making, and the department course for this patient. I have also personally directed, reviewed, and agree with the discharge instructions and disposition. Disposition - Clinical Impression Clinical Impression: Leg swelling - Patient ED Disposition Is Patient to be Admitted: No - Disposition Referrals: Podiatry Clinic [Outside] - 03/27/17 Disposition: Routine/Home Disposition Time: 12:22 Condition: STABLE Additional Instructions: Return if not better in 3 days. Instructions: Leg Edema (ED) Forms: [employer] ([place]i)
--- NOTE | 2017-03-25 10:58 | CP.PCM.CON ---
History of Present Illness - History of Present Illness History of Present Illness: Podiatry Consult Note - Dr. Darling 41 y/o female patient seen and evaluated in ED for right leg swelling and redness x 4 days. Denies any new trauma to RLE. Patient states she went to the ED at both [facility] [place] and [facility] in the last two weeks for similar swelling, which at [facility] time was also associated with right foot pain. Patient states she has completed a course of Augmentin given to her 2 weeks ago at [facility] [place]. She states that she came to clinic four days ago at which time we advised her to resume full weight bearing. She states she began to notice the redness and swelling return the following day once she began to walk and bear weight fully again. She denies pain to the right leg or foot. Of note, patient had a plantar fasciotomy with gastrocnemius recession by event mgr Dr. Darling in January however patient denies any issues to surgical site. Patient denies N/V/F/D/C/SOB /calf pain. PMH asthma, migraines PSH: none FH: DM, cancer SH: denies ETOH, tobacco use, illicit drug use All: mustard (hives) Review of Systems - Review of Systems All systems: reviewed and no additional remarkable complaints except (per HPI) Past Patient History - Infectious Disease Hx of Infectious Diseases: None - Past Medical History & Family History Past Medical History?: No - Past Social History Alcohol: None Drugs: Denies - CARDIAC Hx Cardiac Disorders: No - PULMONARY Hx Asthma: Yes - NEUROLOGICAL Hx Migraine: Yes - HEENT Hx HEENT Problems: No - RENAL Hx Chronic Kidney Disease: No - ENDOCRINE/METABOLIC Hx Endocrine Disorders: No - HEMATOLOGICAL/ONCOLOGICAL Hx Blood Disorders: No - INTEGUMENTARY Hx Dermatological Problems: No - MUSCULOSKELETAL/RHEUMATOLOGICAL Hx Musculoskeletal Disorders: No - GASTROINTESTINAL Hx Gastrointestinal Disorders: No - GENITOURINARY/GYNECOLOGICAL Hx Genitourinary Disorders: No - PSYCHIATRIC Hx Psychophysiologic Disorder: No Hx Substance Use: No - SURGICAL HISTORY Other/Comment: right lower leg/foot sx (02/06/17) - ANESTHESIA Hx Anesthesia: Yes Hx Anesthesia Reactions: No Hx Malignant Hyperthermia: No Meds Allergies/Adverse Reactions: Allergies Allergy/AdvReac Type Severity Reaction Status Date / Time mustard Allergy RASH Verified 03/17/17 08:47 - Medications Medications: Current Medications Sodium Chloride (Sodium Chloride 0.9%) 500 mls @ 100 mls/hr IV .Q5H STA Stop: 03/25/17 13:56 Last Admin: 03/25/17 09:05 Dose: 100 mls/hr Physical Exam - Constitutional Appears: Well, Non-toxic, No Acute Distress - Extremities Exam Additional comments: VASC: DP and PT pulses palpable B/L. CFT < 3 sec to all digits. Temperature gradient WNL. Mild nonpitting edema noted to bilateral LE, R>L. No edema noted to R foot at this time. No increase in warmth to RLE. NEURO: Gross sensation intact B/L DERM: No open lesions noted. No ecchymosis noted. Very mild nonblanchable erythema noted to RLE. Well healed cicatrices to RLE plantar heel and calf. Skin appears well hydrated. ORTHO: No tenderness elicited on palpation of right foot. Muscle strength 5/5 for all dorsiflexors, plantarflexors, inverters, and everters B/L. No palpable cord RLE. No pain on right calf squeeze. - Neurological Exam Neurological exam: Alert, Oriented x3 - Psychiatric Exam Psychiatric exam: Normal Affect, Normal Mood Results - Vital Signs Recent Vital Signs: Last Vital Signs Temp 97.6 F 03/25/17 08:28 Pulse 71 03/25/17 08:28 Resp 16 03/25/17 08:28 BP 179/63 H 03/25/17 08:28 Pulse Ox 100 03/25/17 10:52 - Labs Result Diagrams: 03/25/17 09:40 03/25/17 09:40 Labs: Laboratory Results - last 24 hr 03/25/17 03/25/17 09:40 09:40 WBC 6.5 RBC 4.16 Hgb 12.3 Hct 35.7 MCV 85.8 MCH 29.6 MCHC 34.5 RDW 13.8 Plt Count 219 MPV 9.1 Neut % (Auto) 63.1 Lymph % (Auto) 27.3 [place] % (Auto) 7.7 Eos % (Auto) 1.7 Baso % (Auto) 0.2 Neut # 4.1 Lymph # 1.8 [place] # 0.5 Eos # 0.1 Baso # 0.0 Sodium 141 Potassium 3.7 Chloride 103 Carbon Dioxide 28 Anion Gap 14 BUN 11 Creatinine 0.7 Est GFR ( Amer) > 60 Est GFR (Non-Af Amer) > 60 Random Glucose 93 Calcium 9.1 Total Bilirubin 0.7 AST 30 ALT 52 D Alkaline Phosphatase 68 Total Protein 7.6 Albumin 4.2 Globulin 3.4 Albumin/Globulin Ratio 1.2 Assessment & Plan - Assessment and Plan (Free Text) Assessment: 41 year old female with RLE swelling Plan: Patient seen and evaluated Discussed with attending, Dr. Darling Afebrile, absent leukocytosis (WBC 6.5) Venous duplex from 03/11 negative for DVT RLE does not appear clinically infected at this time Pt recently completed full course of Augmentin and is negative for constitutional symptoms assoc with infection 03/17 R foot X-Ray negative for acute fracture OUMOU bandage applied to RLE and patient advised to continue ambulation with surgical shoe with gradual increase to full weight bearing Increase in swelling likely secondary to body habitus and transition from non to full weight bearing Recommend RICE therapy Recommend naproxen prn pain Stable per podiatry standpoint Thank you for the consult
[2017-03-25 13:02] VITALS: BP 132/74
== END 2017-03-25 13:02 | disposition home or self-care (01) ==
LOC: SUPCPDRO 08:22 → H.ER 08:22
DX: R60.0 Localized edema (principal); J45.909 Unspecified asthma, uncomplicated; Z83.3 Family history of diabetes mellitus
CPT/HCPCS: 80053; 85025; 99285; J7040

== ENCOUNTER 2017-05-11 07:26 | Emergency (ER) | payer MEDICAID ==
[2017-05-11 07:50] VITALS: BMI 53.1
[2017-05-11 07:53] VITALS: TEMP 97; O2SAT 98
[2017-05-11] MEDS ORDERED: Albuterol-Ipratrop 3 mg / 0.5 (3 ml) UD IH STA (08:19)
--- NOTE | 2017-05-11 08:29 | ED PDOC ---
HPI: CCC, URI, Sore Throat Time Seen by Provider: 05/11/17 07:35 Chief Complaint (Nursing): Cough, Cold, Congestion Chief Complaint (Provider): Cough History Per: Patient History/Exam Limitations: no limitations Onset/Duration Of Symptoms: Days (last night) Current Symptoms Are (Timing): Still Present Associated Symptoms: Cough (productive), Sputum (yellow), Vomiting (x1 episode ) , Other (mild SOB). denies: Fever, Chills Ear Symptoms: Bilateral: None Additional Complaint(s): Afshan Max is a 42 year old female, with a past medical history of asthma, who presents to the emergency department complaining of productive cough with yellow sputum, and mild shortness of breath onset since last night. Patient states cough was forceful resulting in x1 episode of vomiting. She denies any fever, chills or other medical complaints. PMD: None provided. Past Medical History Reviewed: Historical Data, Nursing Documentation, Vital Signs Vital Signs: Last Vital Signs Temp 97 F L 05/11/17 07:50 Pulse 83 05/11/17 07:50 Resp 19 05/11/17 07:50 BP Pulse Ox 98 05/11/17 08:32 - Medical History PMH: Asthma, Migraine Denies: Chronic Kidney Disease - Surgical History Surgical History: No Surg Hx - Family History Family History: States: Unknown Family Hx, Hypertension - Social History Current smoker - smoking cessation education provided: No Alcohol: None Drugs: Denies - Immunization History Hx Tetanus Toxoid Vaccination: No Hx Influenza Vaccination: No Hx Pneumococcal Vaccination: No - Home Medications Home Medications: Ambulatory Orders Medication Instructions Recorded Albuterol HFA [Ventolin HFA 90 1 puff IH Q4 #1 puff 05/04/17 mcg/actuation (8 g)] Benzonatate [Tessalon Perles] 100 mg PO TID #30 sgl 05/04/17 Metoclopramide [Reglan] 1 tab PO TID PRN #25 tab 05/04/17 Prednisone 50 mg PO DAILY #4 tablet 05/04/17 Albuterol/Ipratropium [Duoneb 3 6 ml IH Q4H PRN #100 neb 05/07/17 MG/3 Ml-0.5 MG/3 Ml 3 Ml] Albuterol HFA [Ventolin HFA 90 2 puff IH Q4H #1 puff 05/11/17 mcg/actuation (8 g)] Azithromycin [Zithromax] 250 mg PO DAILY #6 tab 05/11/17 Oseltamivir [Tamiflu] 75 mg PO BID #10 cap 05/11/17 Prednisone 50 mg PO DAILY #5 tab 05/11/17 - Allergies Allergies/Adverse Reactions: Allergies Allergy/AdvReac Type Severity Reaction Status Date / Time mustard Allergy RASH Verified 05/07/17 12:26 Review of Systems ROS Statement: Except As Marked, All Systems Reviewed And Found Negative Constitutional: Negative for: Fever, Chills Respiratory: Positive for: Cough (productive ), Shortness of Breath (mild), Sputum (yellow) Gastrointestinal: Positive for: Vomiting (x1 episode) Physical Exam - Reviewed Nursing Documentation Reviewed: Yes Vital Signs Reviewed: Yes - Physical Exam Appears: Positive for: Non-toxic Head Exam: Positive for: ATRAUMATIC, NORMAL INSPECTION, NORMOCEPHALIC Skin: Positive for: Normal Color, Warm, Dry Eye Exam: Positive for: Normal appearance, EOMI, PERRL ENT: Positive for: Normal ENT Inspection. Negative for: Pharyngeal Erythema, Tonsillar Exudate Neck: Positive for: Painless ROM, Supple Cardiovascular/Chest: Positive for: Regular Rate, Rhythm. Negative for: Murmur Respiratory: Positive for: Rhonchi (scattered). Negative for: Wheezing, Respiratory Distress Gastrointestinal/Abdominal: Positive for: Normal Exam, Soft. Negative for: Tenderness, Guarding, Rebound Back: Positive for: Normal Inspection. Negative for: L CVA Tenderness, R CVA Tenderness, Vertebral Tenderness Extremity: Positive for: Normal ROM (full ROM on all extremities). Negative for : Tenderness, Deformity, Swelling Neurologic/Psych: Positive for: Alert, Oriented - ECG O2 Sat by Pulse Oximetry: 98 (RA) Pulse Ox Interpretation: Normal Medical Decision Making Medical Decision Making: Initial Plan: --Chest two views (PA/LAT) [RAD] --Duoneb 3 ml INH --Peak flow pre/post Tx --Reevaluation Scribe Attestation: Documented by Henrique Lee, acting as a scribe for Jayce Smith MD Provider Scribe Attestation: All medical record entries made by the Scribe were at my direction and personally dictated by me. I have reviewed the chart and agree that the record accurately reflects my personal performance of the history, physical exam, medical decision making, and the department course for this patient. I have also personally directed, reviewed, and agree with the discharge instructions and disposition. Disposition - Clinical Impression Clinical Impression: Bronchitis - Patient ED Disposition Is Patient to be Admitted: No Counseled Patient/Family Regarding: Studies Performed, Diagnosis, Need For Followup, Rx Given - Disposition Referrals: [facility] [Outside] Disposition: Routine/Home Disposition Time: 10:16 Condition: FAIR Prescriptions: Albuterol HFA [Ventolin HFA 90 mcg/actuation (8 g)] 2 puff IH Q4H #1 puff Azithromycin [Zithromax] 250 mg PO DAILY #6 tab Oseltamivir [Tamiflu] 75 mg PO BID #10 cap Prednisone 50 mg PO DAILY #5 tab Instructions: Acute Bronchitis, Flu, Adult (DC) Forms: [employer] ([place]akh)
--- NOTE | 2017-05-11 09:40 | RAD ---
HISTORY: cough COMPARISON: Chest radiograph dated 02/27/2017. TECHNIQUE: Chest PA and lateral FINDINGS: LUNGS: No active pulmonary disease. PLEURA: No significant pleural effusion identified. No pneumothorax apparent. CARDIOVASCULAR: Normal. OSSEOUS STRUCTURES: No significant abnormalities. VISUALIZED UPPER ABDOMEN: Normal. OTHER FINDINGS: None. IMPRESSION: No active disease.
[2017-05-11 10:36] VITALS: BP 127/78; PULSE 78; RESP 17
== END 2017-05-11 10:36 | disposition home or self-care (01) ==
LOC: H.ER 07:26
DX: J40 Bronchitis, not specified as acute or chronic (principal); J45.909 Unspecified asthma, uncomplicated

== ENCOUNTER 2017-07-23 13:46 | Emergency (ER) | payer MEDICAID ==
[2017-07-23 13:47] VITALS: BMI 53.1
[2017-07-23 14:04] VITALS: BP 148/76; PULSE 64; RESP 18; TEMP 98; O2SAT 98
--- NOTE | 2017-07-23 14:32 | ED PDOC ---
Lower Extremity Pain/Injury Time Seen by Provider: 07/23/17 14:19 Chief Complaint (Nursing): Lower Extremity Problem/Injury Chief Complaint (Provider): Left foot pain History Per: Patient History/Exam Limitations: no limitations Onset/Duration Of Symptoms: Days Current Symptoms Are (Timing): Still Present Additional History Per: Patient Additional Complaint(s): 42 y/o female presents to ED with complaints of left foot pain for the past couple days. She says she is unable to put weight on the heel of her foot. Patient denies any injury or trauma. Patient did not take any medication for her symptoms and offers no other medical complaints. Patient has history of plantar fascitiits to right foot and states she has surgery on right foot for this reason. She states pain to left foot feels similar to when she had symptoms on right foot. PMD: [facility] Past Medical History Reviewed: Historical Data, Nursing Documentation, Vital Signs Vital Signs: Last Vital Signs Temp 98 F 07/23/17 14:01 Pulse 64 07/23/17 14:01 Resp 18 07/23/17 14:01 BP 148/76 07/23/17 14:01 Pulse Ox 98 07/23/17 14:01 - Medical History PMH: Asthma - Surgical History Other surgeries: right plantar fasciotomy, right gastroc release - Family History Family History: States: Unknown Family Hx, Hypertension - Living Arrangements Living Arrangements: With Family - Social History Current smoker - smoking cessation education provided: No Alcohol: None Drugs: Denies - Home Medications Home Medications: Ambulatory Orders Medication Instructions Recorded Albuterol HFA [Ventolin HFA 90 1 puff IH Q4 #1 puff 05/04/17 mcg/actuation (8 g)] Benzonatate [Tessalon Perles] 100 mg PO TID #30 sgl 05/04/17 Metoclopramide [Reglan] 1 tab PO TID PRN #25 tab 05/04/17 Prednisone 50 mg PO DAILY #4 tablet 05/04/17 Albuterol/Ipratropium [Duoneb 3 6 ml IH Q4H PRN #100 neb 05/07/17 MG/3 Ml-0.5 MG/3 Ml 3 Ml] Albuterol HFA [Ventolin HFA 90 2 puff IH Q4H #1 puff 05/11/17 mcg/actuation (8 g)] Azithromycin [Zithromax] 250 mg PO DAILY #6 tab 05/11/17 Oseltamivir [Tamiflu] 75 mg PO BID #10 cap 05/11/17 Prednisone 50 mg PO DAILY #5 tab 05/11/17 Naproxen [Naprosyn] 500 mg PO BID #20 tab 07/23/17 - Allergies Allergies/Adverse Reactions: Allergies Allergy/AdvReac Type Severity Reaction Status Date / Time mustard Allergy RASH Verified 07/23/17 14:01 Wells Criteria for PE - Wells Criteria for Pulmonary Embolism Clinical Signs and Symptoms of DVT: No P.E is #1 Diagnosis, or Equally Likely: No Heart Rate >100: No Immobilization at least 3 days;Surgery previous 4 weeks: No Previous, objectively diagnosed PE or DVT: No Hemoptysis: No Malignancy w/treatment within 6 months, or palliative: No Total Score: 0 Review of Systems ROS Statement: Except As Marked, All Systems Reviewed And Found Negative Musculoskeletal: Positive for: Foot Pain (left) Physical Exam - Reviewed Nursing Documentation Reviewed: Yes Vital Signs Reviewed: Yes - Physical Exam Appears: Positive for: Non-toxic, No Acute Distress Head Exam: Positive for: NORMOCEPHALIC Skin: Positive for: Normal Color. Negative for: Rash Eye Exam: Positive for: Normal appearance Pulses-Dorsalis Pedis (L): 2+ Extremity: Positive for: Normal ROM (normal ROM at left ankle), Tenderness ( point tenderness to left heel with no erythema or open wounds). Negative for: Deformity Neurologic/Psych: Positive for: Alert, Oriented - ECG O2 Sat by Pulse Oximetry: 98 (RA) Pulse Ox Interpretation: Normal Medical Decision Making Medical Decision Making: Impression: Left foot pain Plan: -- XR left foot -- Motrin 600 mg PO -- Tylenol 975mg PO Case was d/w podiatry resident, Dr. Kiran. He is familiar with patient. He advised purcell dressing to affected foot and podiatry clinic follow up. Scribe Attestation: Documented by Geri Sargent acting as a scribe for MAGDY Davenport. Provider Attestation: All medical record entries made by the Scribe were at my direction and personally dictated by me. I have reviewed the chart and agree that the record accurately reflects my personal performance of the history, physical exam, medical decision making, and the department course for this patient. I have also personally directed, reviewed, and agree with the discharge instructions and disposition. Procedures - Splinting Location: Left foot Pre-Made Type: Purcell dressing with ortho shoe applied Pre-Proc Neuro Vasc Exam: normal Post-Proc Neuro Vasc Exam: normal Disposition - Clinical Impression Clinical Impression: Heel spur, Plantar fasciitis - Patient ED Disposition Is Patient to be Admitted: No Counseled Patient/Family Regarding: Studies Performed, Diagnosis, Need For Followup, Rx Given - Disposition Referrals: Podiatry Clinic [Outside] Disposition: Routine/Home Disposition Time: 15:57 Condition: STABLE Additional Instructions: Ice, rest and elevate affected area. Take rx meds as directed as needed for pain. Call podiatry clinic in AM to arrange for follow up appt. Prescriptions: Naproxen [Naprosyn] 500 mg PO BID #20 tab Instructions: Plantar Fasciitis Exercises, Heel Pain (Caused by Plantar Fasciitis) (DC) Forms: [employer] (Bolivian)
--- NOTE | 2017-07-23 16:46 | RAD ---
PROCEDURE: Left Foot Radiographs. HISTORY: heel pain COMPARISON: None. FINDINGS: BONES: No acute fracture. JOINTS: Unremarkable. SOFT TISSUES: Normal. OTHER FINDINGS: Achilles enthesophyte. Inferior plantar calcaneal spur. IMPRESSION: No demonstrated fracture or dislocation. Heel spur.
== END 2017-07-23 16:36 | disposition home or self-care (01) ==
LOC: H.ER 13:46
DX: M72.2 Plantar fascial fibromatosis (principal); M77.32 Calcaneal spur, left foot

== ENCOUNTER 2017-09-25 06:45 | Day surgery (SDC) | payer MEDICAID ==
[2017-09-25] MEDS ORDERED: Lactated Ringer's 1,000 ML IV ONE ×2 (07:50→11:30)
[2017-09-25 09:08] LABS: HEMOGLOBIN 12.3 g/dL (12.0-16.0); MEAN CELL VOLUME 82.9 fl (81.0-99.0); MEAN CORPUSCULAR HEMOGLOBIN 29.6 pg (27.0-31.0); MEAN CORPUSCULAR HGB CONC 35.7 g/dL (33.0-37.0); RBC 4.17 Mil/uL (3.80-5.20); WHITE BLOOD COUNT 5.1 K/uL (4.8-10.8)
[2017-09-25] MEDS ORDERED: Lidocaine 1% Inj (20ml) IJ ONE (09:19)
[2017-09-25] MEDS ORDERED: Bupivacaine 0.5% Inj(30mL) IJ ONE (09:19)
[2017-09-25] MEDS ORDERED: ceFAZolin 1 GM in Sodium Chloride 0.9% 100 ML IVPB ONE (09:19)
[2017-09-25] MEDS ORDERED: Sodium Chloride 0.9% 1,000 ML IV SCH (09:30)
--- NOTE | 2017-09-25 09:56 | CP.PCM.PN ---
Subjective - Date & Time of Evaluation Date of Evaluation: 09/25/17 Time of Evaluation: 09:51 - Subjective Subjective: Podiatry Consult Note - Dr. Darling 42 y/o female patient seen and evaluated in [facility] for L foot gastroc recession and plantar fasciotomy. Patient reports she received the same surgery to the Right foot in January of 2017, and denies any adverse reactions to anesthesia. Patient reports she last ate at 9:30 PM last night. Patient denies any new pedal complaints at this time. Patient complaints of moderate pain, worse with ambulation. PMH asthma, migraines PSH: R gastric recession and plantar fasciotomy FH: DM, cancer SH: denies ETOH, tobacco use, illicit drug use All: mustard (hives) Objective - Vital Signs/Intake and Output Vital Signs (last 24 hours): Temp Pulse Resp BP Pulse Ox 98.2 F 75 20 160/72 H 99 09/25/17 07:31 09/25/17 07:34 09/25/17 07:31 09/25/17 07:31 09/25/17 07:31 - Medications Medications: Current Medications Cefazolin Sodium 1 gm/ Sodium (Chloride) 100 mls @ 100 mls/hr IVPB ONCE ONE PRN Reason: Protocol Stop: 09/25/17 10:18 Sodium Chloride (Sodium Chloride 0.9%) 1,000 mls @ 0 mls/hr IV .Q0M NEPTALI PRN Reason: As Directed Stop: 09/26/17 09:20 - Labs Labs: 09/25/17 08:51 - Constitutional Appears: Well, Non-toxic, No Acute Distress - Head Exam Head Exam: ATRAUMATIC, NORMOCEPHALIC - Extremities Exam Additional comments: Bilateral Lower Extremity Exam: VASC; DP and PT 2/4 bilaterally; CFT less than 3 seconds X 10; TG warm to cool proximal to distal, minimal edema noted bilateral feet NEURO: grossly intact DERM: no open lesions, no open wounds, no clinical signs of infection MSK: pain on palpation to the medial calcaneal tubercle, pain on palpation medially to the left ankle distal to the medial malleolus, pain with ankle range of motion, no pain on posterior calf squeeze - Neurological Exam Neurological Exam: Alert, Awake, Oriented x3 - Psychiatric Exam Psychiatric exam: Normal Affect, Normal Mood Assessment and Plan - Assessment and Plan (Free Text) Assessment: 42 y/o female seen and evaluated in [facility] for left gastroc recession and plantar fasciotomy Plan: Pt was seen and examined in [facility] Pt NPO status was confirmed All pre-op testing and clearance in chart Pt has exhausted all conservative treatment at this time and is opting for surgical intervention Pt was explained procedure and post-operative course All pt's questions were answered to satisfaction No guarantees were made Pt understands all risks, benefits and complications of procedure Pt will follow-up with Dr. Darling within 1 week of surgery
--- NOTE | 2017-09-25 10:01 | CP.SDSHP ---
Same Day Surgery H & P - History Proposed Procedure: Left gastroc recession and left plantar fasciotomy Pre-Op Diagnosis: L gastroc-achilles equinus and plantar fasciitis - Previous Medical/Surgical History Pain: 4.Moderate Pain - Allergies Allergies: Allergies mustard Allergy (Verified 08/01/17 18:48) RASH - Physical Exam Vital Signs: Vital Signs 09/25/17 09/25/17 07:31 07:34 Temperature 98.2 F Pulse Rate 75 75 Respiratory 20 Rate Blood Pressure 160/72 H O2 Sat by Pulse 99 Oximetry - {Optional Preform as Required} Integument: WNL - Impression Pt. Evaluated Today:Candidate for Anesthesia & Procedure: Yes - Date & Time Date: 09/25/17 Time: 10:01 Short Stay Discharge - Short Stay Discharge Admitting Diagnosis/Reason for Visit: M72.2 Referrals: Seth Sweeney MD [Primary Care Provider] - Follow-up: Patient will follow up in the Podiatry clinic Additional Instructions (Diet, Activity): -Patient in good/stable condition for discharge home -Pt to resume medications per medical reconciliation -Resume regular diet Please keep dressing clean, dry, & intact to surgical site -Use plastic bag over bandage for showering -Wear post op shoe at all times when ambulating -Call clinic if you see signs of infection (redness, swelling, malodor) -Please make an appointment to see Dr. Darling in office/clinic within 1 week for post-op check Progress Note/Discharge Note with Instructions: - Patient evaluated bedside in recovery s/p surgical procedure. - After surgical procedure patient in NAD - (+) Void, (+) Appetite - Capillary refill time <3s and NVSI intact. - Patient denies complaints at this time - Post operative instructions and plan of care explained to patient at length. - Pt. acknowledges understanding. - Patient stable for DC per podiatric surgery
[2017-09-25] MEDS ORDERED: Propofol 10 mg/ml Inj (20 ML) ONE (10:20)
[2017-09-25] MEDS ORDERED: Midazolam 2 MG/2 ML VIAL ONE (10:21)
[2017-09-25] MEDS ORDERED: Succinylcholine 200 mg/10 ml Inj IV ONE (10:22)
[2017-09-25] MEDS ORDERED: Bupivacaine HCl 0.25% PF (30 ml) Inj ONE (10:30)
[2017-09-25] MEDS ORDERED: ceFAZolin IV 1 gm in Dextrose 2 GM/100 ML BAG IVPB ONE (11:06)
[2017-09-25] MEDS ORDERED: Bupivacaine HCl 0.25% PF (30 ml) Inj IJ ONE (12:10)
[2017-09-25] MEDS ORDERED: Oxycodone/Acetaminophen 5/325 mg Tab PO PRN ×2 (12:29)
--- NOTE | 2017-09-25 12:34 | PCM.SURG1 ---
Surgeon's Initial Post Op Note - Surgeon's Notes Surgeon: Dr. Darling DPM Bead Filler: Dr. Oskar Esteban DPM PGY-3, Dr. Dilia Callejas DPM PGY-3, Dr. Hoda Melendez DPM PGY-2 Type of Anesthesia: General LMA Anesthesia Administered By: Dr. Roblero Pre-Operative Diagnosis: 1. left gastroc achilles equinus. 2. left foot plantar fasciitis Operative Findings: see dictations. materials: 3-0 vicryl, 3-0 prolene; intraop injectables: 20 cc of .25 % marcaine plain Post-Operative Diagnosis: same Operation Performed: 1. L foot plantar fasciotomy. 2. L leg gastroc recession Specimen/Specimens Removed: none Estimated Blood Loss: EBL {In ML}: 0 Blood Products Given: N/A Drains Used: No Drains Post-Op Condition: Good Date of Surgery/Procedure: 09/25/17 Time of Surgery/Procedure: 10:00
[2017-09-25 13:11] VITALS: O2SAT 99
[2017-09-25 13:31] VITALS: RESP 18
[2017-09-25 16:41] VITALS: BP 140/78; PULSE 80; TEMP 98
--- NOTE | 2017-09-26 07:27 | OP ---
PROCEDURE DATE: 09/25/2017 SURGEON: Ambrose Darling DPM MAINTENANCE PAINTER APPRENTICE: Yaritza Callejas DPM, PGY-3; Martine Esteban DPM, PGY-3; Dr. Melendez, PGY-2. ANESTHESIOLOGIST: Dr. Roblero. TYPE OF ANESTHESIA: General anesthesia. PREOPERATIVE DIAGNOSES: 1. Left foot Achilles tendonitis. 2. Left foot equinus ankle deformity, acquired. 3. Left foot plantar fascitis. POSTOPERATIVE DIAGNOSES: 1. Left foot Achilles tendonitis. 2. Left foot equinus ankle deformity, acquired. 3. Left foot plantar fascitis. PROCEDURES PERFORMED: 1. Left leg gastrocnemius recession. 2. Left foot plantar fasciotomy with ultrasound guidance. INDICATIONS: The patient is a 42-year-old female with the above-mentioned diagnosis. The patient has exhausted multiple forms of conservative treatment at this time and now requested surgical intervention. All risks, benefits, and possible complications for the procedure have been explained to the patient at length. All questions were answered. No guarantees were given or implied. Consent was signed. N.p.o. status was confirmed prior to bringing the patient to the operating room. PREPARATION: The patient was brought into the operating room and placed on the operating room table in a supine position. Once anesthesia was achieved, the left foot and leg were then prepped and draped in the normal sterile manner. The tourniquet on the thigh was turned up to 350 mmHg, and the procedure began. PROCEDURE #1: Attention was directed to the posterior aspect of the patient's left calf where the muscle belly of gastrocnemius muscle heads were appreciated. The gastrocnemius muscle was palpated down to the approximated area of the myotendinous junction which was then marked. A 1 cm linear longitudinal incision was made using #15 blade for the medial portal on the medial aspect of the patient's left leg. At this time, a small freer was introduced and passed from medial to lateral just superficial to the myotendinous junction and fascia. next, the obturator and cannula apparatus from the Ar[employer]rex EndoBlade was introduced and passed through the operative field. After blunt dissection, the hemostat was used to extend bluntly and puncture the crural fascia. With the obturator and cannula apparatus, the cannula was passed in the crural fascia junction to the underlying gastrocnemius fascia and fascia inversely through the leg to create a lateral prominence on the lateral aspect of the patient's left lower extremity, once the prominence of the cannula noted, a 1 cm linear longitudinal incision was made using #15 blade, but care being taken to identify and retract all vital neurovascular structures. Through the incision, the fascia was then punctured to allow for the transverse cannula extending from the medial myotendinous junction to the lateral myotendinous junction. At that time, the obturator was then removed and the cannula was left in place and a 4-0 mm arthroscope with fascia medial to lateral to allow for visualization of the soft tissue structure. At this time, the cannula was aligned to visualize the gastrocnemius fascia. Evaluation of the deep subcutaneous structures was then performed to confirm the position of the sural nerve and the small saphenous vein, and that the neurovascular bundle was intact. Attention was then directed to the gastrocnemius fascia where using a hook plate from the Ar[employer]rex EndoBlade set, it was passed through the lateral portal and passed through the medial portal of the gastrocnemius fascia using bladed edge. Through the preset of the cannula track, a longitudinal transverse fasciotomy was performed and the gastrocnemius resection was achieved with the underlying muscle belly visualized upon transection of the fascia. At this time, visualization was confirmed. There were no fibrous bands remained intact. The incision site was then copiously irrigated with sterile normal saline. The medial and lateral portals were then re-approximated with 4-0 nylon. Evaluation of the gastrocnemius resection was found to be adequate, and the range of motion was really increased at the ankle joint. PROCEDURE #2: Left foot plantar fasciotomy with ultrasound guidance using Tenex. Attention was then directed to the plantar aspect of the left foot where under ultrasound guidance, the medial plantar calcaneal tubercle was appreciated along with the medial plantar fascial band. Upon ultrasound evaluation, medial band of the plantar fascia was appreciated along the proximal one-third segment of the plantar fascia extending from the medial plantar tubercle attachment. At this time, the Tenex TX2 Handpiece was introduced through the surgical field through a 1-cm longitudinal incision made at the level of the medial plantar tubercle. Attention was then extended down to the subcutaneous tissue with care being taken to identify and retract all vital neurovascular structures. The medial border of the medial plantar fascial band was then palpated, and the TX2 Handpiece was then introduced and the ultrasound debridement fasciotomy began. Total ultrasonic energy time delivered was 4 minutes and 26 seconds. The incision site was then copiously irrigated with sterile normal saline. The skin was then re-approximated with 4-0 nylon in a simple suture type technique. At this time, a postoperative injection of 20 mL of 0.25% Marcaine plain was given in a local block-type fashion to the left foot and leg. Postoperative dressing included Xeroform, 4 x 4 gauze, Chandrakant, Kerlix, and Onesimo bandage. POSTOPERATIVE CONDITION: The patient tolerated the anesthesia and the procedure well and was escorted to the recovery room with vital signs stable and neurovascular status intact to the left lower extremity. The patient will follow up in clinic with Dr. Darling as an outpatient. Yaritza Callejas DPM Ambrose Darling DPM MTDMack
== END 2017-09-25 16:30 | disposition home or self-care (01) ==
LOC: H.OPSURG 06:45
PROVIDERS: ATTEND Podiatrist Foot & Ankle Surgery
DX: M72.2 Plantar fascial fibromatosis (principal); M21.6X2 Other acquired deformities of left foot; G43.909 Migraine, unspecified, not intractable, without status migrainosus; J45.909 Unspecified asthma, uncomplicated
CPT/HCPCS: 27687; 28008; 36415; 85027; J0330; J0690; J2001; J2250; J2270; J2704; J2765; J3010; J7030; J7120

== ENCOUNTER 2017-10-02 20:24 | Emergency (ER) | payer MEDICAID ==
[2017-10-02 20:25] VITALS: BMI 53.1
[2017-10-02 20:42] VITALS: TEMP 98
--- NOTE | 2017-10-02 20:57 | ED PDOC ---
HPI: General Adult Time Seen by Provider: 10/02/17 20:43 Chief Complaint (Nursing): Lower Extremity Problem/Injury Chief Complaint (Provider): left calf pain History Per: Patient Current Symptoms Are (Timing): Still Present Additional Complaint(s): 42 y/o female s/p gastroc recession surgery last Monday presents to the ED with complaints of left calf pain status post accidentally tripping over her brother' s friend when she felt a pop in her left calf area. Patient reports that pain today is worse than it was on post-op day 1. Patient is unable to bear weight on left leg due to pain. Patient reports taking percocet at home with no relief. PMD: Dr. Seth Maya Milk Wagon Driver: Dr. Darling Past Medical History Reviewed: Historical Data, Nursing Documentation, Vital Signs Vital Signs: Last Vital Signs Temp 98 F 10/02/17 20:38 Pulse 75 10/02/17 20:38 Resp 18 10/02/17 20:38 BP 138/81 10/02/17 20:38 Pulse Ox 100 10/02/17 21:33 - Medical History PMH: Asthma, Migraine - Surgical History Other surgeries: right calf surgery, left calf surgery - Family History Family History: States: Unknown Family Hx, Hypertension - Living Arrangements Living Arrangements: With Family - Social History Current smoker - smoking cessation education provided: No Alcohol: None Drugs: Denies - Home Medications Home Medications: Ambulatory Orders Medication Instructions Recorded Ibuprofen [Motrin Tab] 800 mg PO Q8 PRN #20 tab 10/02/17 - Allergies Allergies/Adverse Reactions: Allergies Allergy/AdvReac Type Severity Reaction Status Date / Time mustard Allergy RASH Verified 10/02/17 20:38 Review of Systems ROS Statement: Except As Marked, All Systems Reviewed And Found Negative Musculoskeletal: Positive for: Leg Pain (left calf pain s/p surgery) Physical Exam - Reviewed Nursing Documentation Reviewed: Yes Vital Signs Reviewed: Yes - Physical Exam Appears: Positive for: Non-toxic, In Acute Distress Head Exam: Positive for: ATRAUMATIC, NORMOCEPHALIC Skin: Positive for: Normal Color, Warm, Dry Eye Exam: Positive for: Normal appearance Extremity: Positive for: Tenderness (moderate to the left calf ), Swelling ( moderate swelling to the left calf), Other (surigical incisions are clean, dry and intact) Neurologic/Psych: Positive for: Alert, Oriented (x3). Negative for: Motor/ Sensory Deficits - ECG O2 Sat by Pulse Oximetry: 100 (RA) Pulse Ox Interpretation: Normal - Other Rad Doppler Left leg X-Ray: Read By Radiologist X-Ray Interpretation: see below Medical Decision Making Medical Decision Making: Time: 2055 Impression: 42 y/o female with left calf pain s/p gastroc recession Plan: -- Toradol 30 mg IM -- Dilaudid 1 mg IM --Podiatry resident, Dr. Krishnamurthy, evaluated patient at bedside, states to order doppler of left leg. US: FINDINGS: Deep veins: Normal color and spectral Doppler flow. Normal compressibility. No deep vein thrombosis. Superficial veins: No thrombosis. Soft tissues: No popliteal cyst. 2.2 x 3.9 x 1.3 cm hypoechoic lesion with internal echoes within mid calf. IMPRESSION: 1. No evidence of DVT within LEFT lower extremity. 2. Soft tissue lesion. DDX: Hematoma, abscess, less likely neoplasm. Clinical correlation is needed. Mcmillan compression dressing applied by resident to affected extremity. Patient has percocet at home that she will continue to use as needed. Rx motrin also given. Patient was offered crutches but she declined, states she has cane that she will continue to use. Patient was instructed to return to ED at any time if worse, otherwise to keep her appt this coming Monday with Dr. Darling. Scribe Attestation: Documented by Camryn Agrawal, acting as a scribe for Nithya Goetz PA-C. Provider Scribe Attestation: All medical record entries made by the Scribe were at my direction and personally dictated by me. I have reviewed the chart and agree that the record accurately reflects my personal performance of the history, physical exam, medical decision making, and the department course for this patient. I have also personally directed, reviewed, and agree with the discharge instructions and disposition Disposition - Clinical Impression Clinical Impression: Strain of calf muscle - Patient ED Disposition Is Patient to be Admitted: No Counseled Patient/Family Regarding: Studies Performed, Diagnosis, Need For Followup, Rx Given - Disposition Referrals: Ambrose Darling DPM [Staff Provider] - Disposition: Routine/Home Disposition Time: 23:21 Condition: STABLE Additional Instructions: Take rx meds as directed as needed for pain. Ice, rest and elevate affected area. Follow up this coming Monday with Dr. Darling or return to ED at any time if worse. Prescriptions: Ibuprofen [Motrin Tab] 800 mg PO Q8 PRN #20 tab PRN Reason: Pain, Moderate (4-7) Instructions: Muscle Strain (DC), Lower Extremity Muscle Strain Forms: [employer] (Amharic)
[2017-10-03 01:02] VITALS: BP 129/83; PULSE 72; RESP 16; O2SAT 96
--- NOTE | 2017-10-03 01:11 | CP.PCM.CON ---
History of Present Illness - History of Present Illness History of Present Illness: Consult notes for attending Phong Stiles 42 y/o F patient s/p gastroc recession surgery last Monday seen and evaluated at the ED with complaints of left calf pain. Patient states that she tripped at 5 pm and hit the wall and immediately she felt pop at the site of surgery. Patient states that she is in pain. Her pain is 8/10 on VAS scale. Patient states that she tried percocet but it didn't help. Patient denies any other pedal complaint. Patient denies any F/N/V/C or SOB recently. PMH: Asthma, Migraine. PSH: Left calf surgery, Right calf surgery. left plantar fasciotomy. Allergies: Mustard. Review of Systems - Review of Systems Review of Systems: As nper HPI Past Patient History - Infectious Disease Hx of Infectious Diseases: None - Past Medical History & Family History Past Medical History?: No - Past Social History Alcohol: None Drugs: Denies - CARDIAC Hx Cardiac Disorders: No - PULMONARY Hx Asthma: Yes - NEUROLOGICAL Hx Migraine: Yes - HEENT Hx HEENT Problems: No - RENAL Hx Chronic Kidney Disease: No - ENDOCRINE/METABOLIC Hx Endocrine Disorders: No - HEMATOLOGICAL/ONCOLOGICAL Hx Blood Disorders: No - INTEGUMENTARY Hx Dermatological Problems: No - MUSCULOSKELETAL/RHEUMATOLOGICAL Hx Musculoskeletal Disorders: No - GASTROINTESTINAL Hx Gastrointestinal Disorders: No - GENITOURINARY/GYNECOLOGICAL Hx Genitourinary Disorders: No - PSYCHIATRIC Hx Psychophysiologic Disorder: No Hx Substance Use: No - SURGICAL HISTORY Hx Surgeries: Yes Hx Bile Duct Stent: No Hx Eye Surgery: Yes (strabismus megan) Other/Comment: rt foot fasciotomy - ANESTHESIA Hx Anesthesia: Yes Hx Anesthesia Reactions: No Hx Malignant Hyperthermia: No Meds Home Medications: Home Medication List Medication Instructions Recorded Confirmed Type Ibuprofen [Motrin Tab] 800 mg PO Q8 PRN #20 tab 10/02/17 Rx Allergies/Adverse Reactions: Allergies Allergy/AdvReac Type Severity Reaction Status Date / Time mustard Allergy RASH Verified 10/02/17 20:38 Physical Exam - Constitutional Appears: Well, Non-toxic, No Acute Distress - Head Exam Head Exam: ATRAUMATIC, NORMOCEPHALIC - Extremities Exam Additional comments: left Lower extremity focused exam Vasc: DP/PT 2/4, cap refill < 3 sec in all digits. Temp gradient warm to warm. Non pitting edema extending from the foot up to tibial tuberosity at the left side. Neuro: Protective sensation and gross sensation are intact. Derm: Surgical incisions looks dry and clean with no signs of active infection, no drainage, sutures are intact. MSK: left calf is rigid. Pain on palpating left calf. Patient muscle power couldn't performed due to guarding. pain with ankle ROM plantar and dorsiflexion. - Neurological Exam Neurological exam: Alert, Oriented x3 - Psychiatric Exam Psychiatric exam: Normal Affect, Normal Mood Results - Vital Signs Recent Vital Signs: Last Vital Signs Temp 98 F 10/02/17 20:38 Pulse 72 10/03/17 01:01 Resp 16 10/03/17 01:01 BP 129/83 10/03/17 01:01 Pulse Ox 96 10/03/17 01:01 Assessment & Plan - Assessment and Plan (Free Text) Assessment: 42 y/o F patient s/p left gastroc recession surgery last Monday with left calf pain Plan: Patient seen and evaluated at the ED. Plan discussed with the attending Phong Stiles. Patient vital data reviewed; afebrile. Ordered Left venous duplex to R/O DVT. Venous duplex shows no evidence of DVT. Mcmillan compression applied to the left LE. Patient instructed to use Motrin for pain. Patient instructed to wear CAM boot during ambulation. Patient instructed to do icing and elevation to her Left foot. Patient expressed verbal understanding Patient to F/U in the podiatry clinic with Phong Stiles. - Date & Time Date: 10/03/17 Time: 01:22
--- NOTE | 2017-10-03 09:20 | US ---
Date of service: 10/02/2017 HISTORY: post surgical pain . PRIORS: None. FINDINGS: 2-D, color and duplex Doppler analysis of the lower extremity venous circulation using routine protocol from the femoral veins through the popliteal veins. Venous compressibility: Normal. Flow and augmentation patterns: Normal. Visualized veins upper third of calf: Normal. Nam cyst: None. Please note that there is a somewhat ill-defined mildly complex flattened fluid collection seen deep to what is likely the gastric anemia/soleus muscles measuring roughly 1.2 x 2.2 x 3.9 cm. IMPRESSION: No sonographic or Doppler evidence for DVT in left lower extremity. Ill-defined mildly complex fluid collection deep to calf muscles as described. Preliminary interpretation of this examination was reported by [facility] at 11:53 p.m. on 10/02/2017. There is concurrence of this report with the preliminary interpretation.
== END 2017-10-03 01:02 | disposition home or self-care (01) ==
LOC: H.ER 20:24
DX: M79.605 Pain in left leg (principal)
CPT/HCPCS: 81025; 93971; 96372; 99283; J1170; J1885

== ENCOUNTER 2017-10-22 19:34 | Emergency (ER) | payer MEDICAID ==
[2017-10-22 19:35] VITALS: BMI 53.1
[2017-10-22 19:39] VITALS: RESP 18
--- NOTE | 2017-10-22 19:56 | ED PDOC ---
HPI: General Adult Time Seen by Provider: 10/22/17 19:42 Chief Complaint (Nursing): Chemical Exposure Chief Complaint (Provider): Carbon Monoxide Exposure History Per: Patient History/Exam Limitations: no limitations Onset/Duration Of Symptoms: Mins (prior to arrival) Current Symptoms Are (Timing): Still Present Additional Complaint(s): 42 year old female presents to the ED s/p carbon monoxide exposure for evaluation. Patient states that at 1900 today, she was woken up from a nap by the carbon monoxide detector, which was at 30 as per [employer]. She reports that upon waking up, she had a bi-temporal headache, prompting the ED visit. Otherwise, denies head injury, fever, shortness of breath, and cough. PMD: Seth Sweeney Past Medical History Reviewed: Historical Data, Nursing Documentation, Vital Signs Vital Signs: Last Vital Signs Temp 98.1 F 10/22/17 20:50 Pulse 66 10/22/17 20:50 Resp 18 10/22/17 20:50 BP 130/76 10/22/17 20:50 Pulse Ox 100 10/22/17 20:50 - Medical History PMH: Asthma, Migraine Denies: Chronic Kidney Disease - Surgical History Surgical History: No Surg Hx Other surgeries: strabismus megan; rt foot fasciotomy - Family History Family History: States: Hypertension - Social History Current smoker - smoking cessation education provided: No Ex-Smoker (has not smoked in the last 12 months): No Alcohol: None Drugs: Denies - Immunization History Hx Tetanus Toxoid Vaccination: Yes Hx Influenza Vaccination: No Hx Pneumococcal Vaccination: No - Home Medications Home Medications: Ambulatory Orders Medication Instructions Recorded Ibuprofen [Motrin Tab] 800 mg PO Q8 PRN #20 tab 10/02/17 - Allergies Allergies/Adverse Reactions: Allergies Allergy/AdvReac Type Severity Reaction Status Date / Time mustard Allergy RASH Verified 10/02/17 20:38 Review of Systems ROS Statement: Except As Marked, All Systems Reviewed And Found Negative Constitutional: Negative for: Fever Respiratory: Negative for: Cough, Shortness of Breath Neurological: Positive for: Headache (bi-temporal) Physical Exam - Reviewed Nursing Documentation Reviewed: Yes Vital Signs Reviewed: Yes - Physical Exam Appears: Positive for: No Acute Distress (speaking in full sentences) Head Exam: Positive for: ATRAUMATIC, NORMOCEPHALIC Eye Exam: Positive for: Normal appearance, EOMI, PERRL ENT: Positive for: Normal ENT Inspection Cardiovascular/Chest: Positive for: Regular Rate, Rhythm Respiratory: Positive for: Normal Breath Sounds. Negative for: Accessory Muscle Use, Respiratory Distress Neurologic/Psych: Positive for: Alert, Oriented (x3) - ECG O2 Sat by Pulse Oximetry: 99 (RA) Pulse Ox Interpretation: Normal - Progress ED Course And Treament: Carboxyhemoglobin level 3. On re-evaluation, pt. reports moderate relief of headache. Medical Decision Making Medical Decision Making: Time: 1942 Initial Impression: carbon monoxide exposure Initial Plan: --O2 via NC Scribe Attestation: Documented by Kristi Castaneda acting as a scribe for Jarod Rico PA-C. Provider Scribe Attestation: All medical record entries made by the Scribe were at my direction and personally dictated by me. I have reviewed the chart and agree that the record accurately reflects my personal performance of the history, physical exam, medical decision making, and the department course for this patient. I have also personally directed, reviewed, and agree with the discharge instructions and disposition. Disposition - Clinical Impression Clinical Impression: Headache - Patient ED Disposition Is Patient to be Admitted: No - Disposition Referrals: [facility] [Outside] Disposition: Routine/Home Disposition Time: 20:30 Condition: IMPROVED Additional Instructions: UMANG ROMAN, thank you for letting us take care of you today. Your provider was Christian Mondragon MD and you were treated for HEADACHE. The emergency medical care you received today was directed at your acute symptoms. If you were prescribed any medication, please fill it and take as directed. It may take several days for your symptoms to resolve. Return to the Emergency Department if your symptoms worsen, do not improve, or if you have any other problems. Please contact your doctor or call one of the physicians/clinics you have been referred to that are listed on the Patient Visit Information form that is included in your discharge packet. Bring any paperwork you were given at discharge with you along with any medications you are taking to your follow up visit. Our treatment cannot replace ongoing medical care by a primary care provider outside of the emergency department. Thank you for allowing the [facility] team to be part of your care today. If you had an X-Ray or CT scan: A Radiologist will review the ED reading if any change in treatment is needed we will contact you. If you had a blood, urine, or wound culture: It will take several days for the results, if any change in treatment is needed we will contact you. If you had an STI test: It will take 48 hours for the results. Please call after 1 week if you have not heard back. Instructions: Headache, Adult (DC) Forms: [email or web address] (Lithuanian) Print Language: MOLDOVAN
[2017-10-22 20:51] VITALS: BP 130/76; PULSE 66; TEMP 98.1
[2017-10-23 18:17] VITALS: O2SAT 99
== END 2017-10-22 20:50 | disposition home or self-care (01) ==
LOC: H.ER 19:34
DX: Z77.098 Contact with and (suspected) exposure to other hazardous, chiefly nonmedicinal, chemicals (principal)

== ENCOUNTER 2017-11-13 07:46 | Emergency (ER) | payer MEDICAID ==
[2017-11-13 07:52] VITALS: O2SAT 99
[2017-11-13 07:53] VITALS: BMI 53.6
--- NOTE | 2017-11-13 08:03 | ED PDOC ---
HPI: Abdomen Time Seen by Provider: 11/13/17 07:52 Chief Complaint (Provider): Umbilical swelling and pain History Per: Patient History/Exam Limitations: no limitations Onset/Duration Of Symptoms: Hrs (this morning) Current Symptoms Are (Timing): Still Present Associated Symptoms: Nausea. denies: Fever, Chills, Vomiting Additional Complaint(s): Afshan Max is a 42 year old female, with a past medical history of asthma, who presents to the emergency department complaining of umbilical swelling and pain noted this morning associated with nausea. Patient reports normal bowel movements. She denies any vomiting, fever, chills or other medical complaints. PMD: None provided. Past Medical History Reviewed: Historical Data, Nursing Documentation, Vital Signs Vital Signs: Last Vital Signs Temp 98 F 11/13/17 07:51 Pulse 78 11/13/17 07:51 Resp 24 11/13/17 07:51 BP 153/89 H 11/13/17 07:51 Pulse Ox 99 11/13/17 08:31 - Medical History PMH: Asthma, Migraine Denies: Chronic Kidney Disease - Surgical History Surgical History: No Surg Hx - Family History Family History: States: Unknown Family Hx, Hypertension - Immunization History Hx Tetanus Toxoid Vaccination: Yes Hx Influenza Vaccination: No Hx Pneumococcal Vaccination: No - Home Medications Home Medications: Ambulatory Orders Medication Instructions Recorded Ibuprofen [Motrin Tab] 800 mg PO Q8 PRN #20 tab 10/02/17 - Allergies Allergies/Adverse Reactions: Allergies Allergy/AdvReac Type Severity Reaction Status Date / Time mustard Allergy RASH Verified 10/02/17 20:38 Review of Systems ROS Statement: Except As Marked, All Systems Reviewed And Found Negative Constitutional: Negative for: Fever, Chills Gastrointestinal: Positive for: Nausea, Abdominal Pain. Negative for: Vomiting Physical Exam - Reviewed Nursing Documentation Reviewed: Yes Vital Signs Reviewed: Yes - Physical Exam Appears: Positive for: No Acute Distress Head Exam: Positive for: ATRAUMATIC, NORMAL INSPECTION, NORMOCEPHALIC Skin: Positive for: Normal Color, Warm, Dry Eye Exam: Positive for: Normal appearance, EOMI, PERRL Neck: Positive for: Painless ROM Cardiovascular/Chest: Positive for: Regular Rate, Rhythm. Negative for: Murmur Respiratory: Positive for: Normal Breath Sounds. Negative for: Respiratory Distress Gastrointestinal/Abdominal: Positive for: Bowel Sounds (present), Soft, Hernia ( umbilical hernia reducible and tender) Back: Positive for: Normal Inspection Extremity: Positive for: Normal ROM (upper and lower extremities). Negative for : Deformity, Swelling Neurologic/Psych: Positive for: Alert, Oriented - Laboratory Results Result Diagrams: 11/13/17 08:45 11/13/17 08:45 - ECG O2 Sat by Pulse Oximetry: 99 (RA) Pulse Ox Interpretation: Normal Medical Decision Making Medical Decision Making: Time: 07:52 Initial Plan: --Abd & Pelvis IV Contrast only [CT] --CMP --CBC w/ differential --Reevaluation ----- Scribe Attestation: Documented by Henrique Lee, acting as a scribe for Jayce Smith MD. Provider Scribe Attestation: All medical record entries made by the Scribe were at my direction and personally dictated by me. I have reviewed the chart and agree that the record accurately reflects my personal performance of the history, physical exam, medical decision making, and the department course for this patient. I have also personally directed, reviewed, and agree with the discharge instructions and disposition. Disposition - Clinical Impression Clinical Impression: Umbilical hernia, Diverticulosis - Patient ED Disposition Is Patient to be Admitted: No Counseled Patient/Family Regarding: Studies Performed, Diagnosis, Need For Followup, Rx Given - Disposition Referrals: Lynda Kiran MD [Staff Provider] - Disposition: Routine/Home Disposition Time: 13:57 Condition: FAIR Instructions: Umbilical Hernia, Adult, Diverticulosis (DC)
[2017-11-13 08:57] LABS: BASO % 0.6 % (0.0-2.0); EOS # 0.1 K/uL (0.0-0.7); EOS % 1.3 % (0.0-4.0); HEMOGLOBIN 12.6 g/dL (12.0-16.0); LYMPH # 2.4 K/uL (1.0-4.3); LYMPH % 32.4 % (20.0-40.0); MEAN CELL VOLUME 84.1 fl (81.0-99.0); MEAN CORPUSCULAR HEMOGLOBIN 29.6 pg (27.0-31.0); MEAN CORPUSCULAR HGB CONC 35.2 g/dL (33.0-37.0); MEAN PLATELET VOLUME 8.7 fl (7.2-11.7); MONO # 0.6 K/uL (0.0-0.8); MONO % 7.7 % (0.0-10.0); NEUT # 4.3 K/uL (1.8-7.0); NRBC % 0.1 % (0.0-0.0); RBC 4.27 Mil/uL (3.80-5.20); RED CELL DISTRIBUTION WIDTH 13.9 % (11.5-14.5); WHITE BLOOD COUNT 7.4 K/uL (4.8-10.8)
[2017-11-13 09:31] LABS: ALB/GLOB RATIO 1.2 (1.0-2.1); ALBUMIN 4.2 g/dL (3.5-5.0); ALT/SGPT 30 U/L (9-52); AST/SGOT 25 U/L (14-36); BLOOD UREA NITROGEN 12 mg/dl (7-17); GFR NON-AFRICAN AMERICAN > 60
[2017-11-13] MEDS ORDERED: Sodium Chloride 0.9% 50 ML IV ONE (10:24)
[2017-11-13] MEDS ORDERED: Iohexol 300 100 ML IJ ONE (10:24)
--- NOTE | 2017-11-13 11:39 | CT ---
Date of service: 11/13/2017 PROCEDURE: CT Abdomen and Pelvis with Oral contrast. HISTORY: Abdominal pain. COMPARISON: Comparison made with prior CT scan of the abdomen pelvis 08/03/2016. TECHNIQUE: Contiguous axial images of the abdomen and pelvis performed following intravenous injection of approximately 95 cc Omnipaque 300 contrast material . Additional 2D sagittal and coronal reformats generated. This CT exam was performed using one or more of the following dose reduction techniques: Automated exposure control, adjustment of the mA and/or kV according to patient size, and/or use of iterative reconstruction technique. Radiation dose: Total exam DLP = 1144.19 mGy-cm. FINDINGS: LOWER THORAX: Lung bases clear. No infiltrate effusion or basilar pneumothorax. Heart is mildly enlarged. No significant pericardial effusion. Small hiatal hernia. LIVER: Liver is borderline/mildly enlarged measuring nearly 18.6 cm in CC dimension. Mild diffuse fatty hepatic infiltration. No obvious hepatic mass collection or calcification. Portal and splenic veins are opacified. GALLBLADDER AND BILE DUCTS: Gallbladder physiologically distended. No evidence of intraluminal gallbladder calculi. PANCREAS: Pancreas appears slightly atrophic and fatty replaced. No pancreatic masses collections or calcifications identified. SPLEEN: Spleen is mildly enlarged measuring over 14 cm in CC dimension. No splenic mass collection or calcification. ADRENALS: No adrenal lesions. KIDNEYS AND URETERS: Kidneys demonstrate symmetric nephrograms. No evidence of nephrolithiasis or hydronephrosis. BLADDER: Urinary bladder incompletely distended which may in part account for slight thick-walled appearance. Correlation with urinalysis recommended to exclude cystitis. REPRODUCTIVE: Uterus appears unremarkable. There is a large approximately 5.6 x 4.6 cm right adnexal cyst and a smaller approximately 12 mm left adnexal cyst. APPENDIX: Normal-appearing appendix best seen on axial image number [id number]. BOWEL: The evaluation of the bowel is limited due to the lack of oral contrast material. The stomach is incompletely distended. Visualized loops of small bowel exhibit normal contour and caliber. No evidence of acute mechanical small bowel obstruction. Stool and air seen throughout the large bowel. There is an occasional colonic diverticula seen along the descending colon however no radiographic evidence of acute diverticulitis. PERITONEUM: Unremarkable. No fluid collection. No free air. Small fat containing umbilical hernia. LYMPH NODES: Few tiny on right lower quadrant mesenteric lymph nodes nonspecific. VASCULATURE: Unremarkable. No aortic aneurysm. BONES: Fusion changes of the L4, L5 and S1 segments noted. Degenerative spondylosis seen at the L3-L4 level. Less severe degenerative spondylosis seen throughout the lower thoracic and lumbar spine. OTHER FINDINGS: None. IMPRESSION: Borderline hepatosplenomegaly. Mild fatty hepatic infiltration. Large right adnexal cyst with small left adnexal cyst. Occasional colonic diverticula without radiographic evidence of acute diverticulitis. See above discussion for additional details and findings.
[2017-11-13 14:38] VITALS: BP 108/68; PULSE 63; RESP 20; TEMP 98.3
== END 2017-11-13 14:36 | disposition home or self-care (01) ==
LOC: H.ER 07:46
DX: K42.9 Umbilical hernia without obstruction or gangrene (principal); K57.90 Diverticulosis of intestine, part unspecified, without perforation or abscess without bleeding; J45.909 Unspecified asthma, uncomplicated
CPT/HCPCS: 74177; 80053; 81025; 85025; 99284; Q9967

== ENCOUNTER 2017-12-18 15:24 | Emergency (ER) | payer MEDICAID ==
[2017-12-18 15:24] VITALS: BMI 53.6
[2017-12-18 16:14] VITALS: BP 148/84; PULSE 71; RESP 18; TEMP 98.4; O2SAT 98
--- NOTE | 2017-12-18 16:53 | ED PDOC ---
Lower Extremity Pain/Injury Chief Complaint (Provider): Lower Extremity Problem/Injury History Per: Patient History/Exam Limitations: no limitations Current Symptoms Are (Timing): Still Present Additional Complaint(s): 42 year old female presents to the ED complaining of left foot pain. Patient reports she was stepping off the curb when she hit her toes vertically on the ground. She states she did not trip or fall but is now reporting pain in the heels and on the top of her foot. Patient is concerned because she had surgery done for plantar fasciitis 3 months ago. Denies numbness or tingling. Patient took Motrin at home with some relief but denied other medications. PMD: none <Ileana Burrows - Last Filed: 12/18/17 17:45> <Joselin Palumbo - Last Filed: 12/23/17 13:48> Time Seen by Provider: 12/18/17 15:40 Chief Complaint (Nursing): Lower Extremity Problem/Injury Past Medical History Reviewed: Historical Data, Nursing Documentation, Vital Signs Vital Signs: Last Vital Signs Temp 98.4 F 12/18/17 16:12 Pulse 71 12/18/17 16:12 Resp 18 12/18/17 16:12 BP 148/84 12/18/17 16:12 Pulse Ox 98 12/18/17 16:12 - Medical History PMH: Asthma, Migraine Denies: Chronic Kidney Disease - Surgical History Surgical History: No Surg Hx - Family History Family History: States: Unknown Family Hx, Hypertension - Immunization History Hx Tetanus Toxoid Vaccination: Yes Hx Influenza Vaccination: No Hx Pneumococcal Vaccination: No <Ileana Burrows - Last Filed: 12/18/17 17:45> Vital Signs: Last Vital Signs Temp 98.4 F 12/18/17 16:12 Pulse 71 12/18/17 16:12 Resp 18 12/18/17 16:12 BP 148/84 12/18/17 16:12 Pulse Ox 98 12/18/17 17:47 <Joselin Palumbo - Last Filed: 12/23/17 13:48> - Home Medications Home Medications: Ambulatory Orders Medication Instructions Recorded Ibuprofen [Motrin Tab] 800 mg PO Q8 PRN #20 tab 10/02/17 Dicyclomine [Dicyclomine HCl] 10 mg PO Q8 #10 cap 11/13/17 - Allergies Allergies/Adverse Reactions: Allergies Allergy/AdvReac Type Severity Reaction Status Date / Time mustard Allergy RASH Verified 12/18/17 16:12 Review of Systems ROS Statement: Except As Marked, All Systems Reviewed And Found Negative Musculoskeletal: Positive for: Foot Pain (Left) Neurological: Negative for: Numbness (or tingling) <Ileana Burrows - Last Filed: 12/18/17 17:45> Physical Exam - Reviewed Nursing Documentation Reviewed: Yes Vital Signs Reviewed: Yes - Physical Exam Appears: Positive for: Non-toxic, No Acute Distress Head Exam: Positive for: ATRAUMATIC, NORMAL INSPECTION, NORMOCEPHALIC Skin: Positive for: Normal Color, Warm, Dry Eye Exam: Positive for: Normal appearance Neck: Positive for: Normal, Painless ROM Cardiovascular/Chest: Positive for: Regular Rate, Rhythm. Negative for: Murmur Respiratory: Positive for: Normal Breath Sounds. Negative for: Wheezing, Respiratory Distress Extremity: Positive for: Normal ROM, Tenderness (Soft tissue tenderness of the left foot) Neurologic/Psych: Positive for: Alert, Oriented. Negative for: Motor/Sensory Deficits <Ileana Burrows - Last Filed: 12/18/17 17:45> - ECG O2 Sat by Pulse Oximetry: 98 (RA) Pulse Ox Interpretation: Normal <Ileana Burrows - Last Filed: 12/18/17 17:45> Medical Decision Making Medical Decision Making: Initial Impression: Left foot pain Initial Plan: --Left foot X-ray Scribe Attestation: Documented by Oj Gonzalez acting as a scribe for Ileana CURRAN. Provider Scribe Attestation: All medical record entries made by the Scribe were at my direction and personally dictated by me. I have reviewed the chart and agree that the record accurately reflects my personal performance of the history, physical exam, medical decision making, and the department course for this patient. I have also personally directed, reviewed, and agree with the discharge instructions and disposition. <Ileana Burrows - Last Filed: 12/18/17 17:45> Disposition - Patient ED Disposition Is Patient to be Admitted: No Counseled Patient/Family Regarding: Diagnosis, Need For Followup, Rx Given - Disposition Disposition: Routine/Home Disposition Time: 17:46 <Ileana Burrows - Last Filed: 12/18/17 17:45> <Joselin Palumbo - Last Filed: 12/23/17 13:48> - Clinical Impression Clinical Impression: Foot injury - Disposition Referrals: Ambrose Darling DPM [Staff Provider] - Condition: STABLE Instructions: Foot Sprain (DC) Forms: [facility] (Jamaican) Addendum Addendum: 12/23/17 13:48 reviewed chart and agree with PA assessment and plan. <Joselin Palumbo - Last Filed: 12/23/17 13:48>
--- NOTE | 2017-12-18 17:36 | RAD ---
Date of service: 12/18/2017 PROCEDURE: Left Foot Radiographs. HISTORY: Left foot Pain. No history of recent/ related trauma provided COMPARISON: None. FINDINGS: BONES: No acute fracture. Large plantar calcaneal spur. JOINTS: Contracture/hammertoe deformities identified. SOFT TISSUES: Normal. OTHER FINDINGS: Pes cavum deformity. IMPRESSION: No acute findings related to/accounting for the clinical presentation.
== END 2017-12-18 17:50 | disposition home or self-care (01) ==
LOC: H.ER 15:24
DX: S99.922A Unspecified injury of left foot, initial encounter (principal); X50.9XXA Other and unspecified overexertion or strenuous movements or postures, initial encounter; Y92.480 Sidewalk as the place of occurrence of the external cause

== ENCOUNTER 2018-02-28 16:21 | Emergency (ER) | payer MEDICAID ==
[2018-02-28 16:21] VITALS: BMI 53.6
[2018-02-28 16:43] VITALS: RESP 18; TEMP 98.2; O2SAT 99
[2018-02-28 18:19] VITALS: BP 144/88; PULSE 72
--- NOTE | 2018-02-28 18:19 | ED PDOC ---
HPI: Hypertension/Hypotension Time Seen by Provider: 02/28/18 16:47 Chief Complaint (Nursing): High Blood Pressure Chief Complaint (Provider): High Blood Pressure History Per: Patient History/Exam Limitations: no limitations Onset/Duration Of Symptoms: Hrs Current Symptoms Are (Timing): Still Present Associated Symptoms: Headache. denies: Chest Pain, Dizziness, Blurred Vision Additional Complaint(s): Afshan Max is a 42 year old female with a past medical history of diverticulosis who was sent to the ED from podiatry clinic for evaluation of hypertension onset just prior to arrival. Patient states that she was in the clinic today when her daughter showed her a text from someone stating that they were going to go to her school and shoot people if she didnt send naked pictures of herself. Patient was noted to have high blood [pressure and admits to having a mild headache. She states that [place] [facility] discharge from the ED. Patient states that she normally has low blood pressure and denies any chest pain, dizziness, shortness of breath, visual disturbances, limb weakness, or gait instability. She also denies any history of hypertension, hyperlipidemia and diabetes. PMD: Seth Sweeney Past Medical History Reviewed: Historical Data, Nursing Documentation, Vital Signs Vital Signs: Last Vital Signs Temp 98.2 F 02/28/18 16:40 Pulse 84 02/28/18 17:08 Resp 18 02/28/18 16:40 BP 156/84 H 02/28/18 17:08 Pulse Ox 99 02/28/18 16:40 - Medical History PMH: Asthma, Migraine Denies: Chronic Kidney Disease - Surgical History Surgical History: No Surg Hx - Family History Family History: States: Unknown Family Hx, Hypertension - Social History Current smoker - smoking cessation education provided: No Alcohol: None Drugs: Denies - Immunization History Hx Tetanus Toxoid Vaccination: Yes Hx Influenza Vaccination: No Hx Pneumococcal Vaccination: No - Home Medications Home Medications: Ambulatory Orders Medication Instructions Recorded Ibuprofen [Motrin Tab] 800 mg PO Q8 PRN #20 tab 10/02/17 Dicyclomine [Dicyclomine HCl] 10 mg PO Q8 #10 cap 11/13/17 RX: Ibuprofen [Motrin Tab] 600 mg PO BID #14 tab 01/18/18 RX: traMADol [Ultram] 50 mg PO TID #7 tab 01/18/18 - Allergies Allergies/Adverse Reactions: Allergies Allergy/AdvReac Type Severity Reaction Status Date / Time mustard Allergy RASH Verified 02/28/18 16:40 Review of Systems ROS Statement: Except As Marked, All Systems Reviewed And Found Negative Eyes: Negative for: Vision Change Cardiovascular: Positive for: Other (hypertension). Negative for: Chest Pain Respiratory: Negative for: Shortness of Breath Neurological: Positive for: Headache. Negative for: Dizziness, Other (gait instability) Physical Exam - Reviewed Nursing Documentation Reviewed: Yes Vital Signs Reviewed: Yes - Physical Exam Appears: Positive for: Non-toxic, No Acute Distress Head Exam: Positive for: ATRAUMATIC, NORMAL INSPECTION, NORMOCEPHALIC Skin: Positive for: Normal Color, Warm, DRY Eye Exam: Positive for: Normal appearance, EOMI, PERRL. Negative for: Conjunctival injection Neck: Positive for: Normal, Painless ROM Cardiovascular/Chest: Positive for: Regular Rate, Rhythm. Negative for: Murmur Respiratory: Positive for: Normal Breath Sounds. Negative for: Respiratory Distress Extremity: Positive for: Normal ROM, Other (equal strength and sensation normal in bilateral lower extremities ) Neurologic/Psych: Positive for: Alert, Oriented, Gait (normal). Negative for: Motor/Sensory Deficits, Facial Droop - ECG O2 Sat by Pulse Oximetry: 99 (RA) Pulse Ox Interpretation: Normal Medical Decision Making Medical Decision Making: Time: 17:34 Blood pressure rechecked and noted to improve to 150/90 without treatment. Plan: --Tylenol 650 mg PO --reevaluation BP re-evaluate and decreased to 144/88 with improvement in ROBERT. Stable for d/c home. ------- Scribe Attestation: Documented by Sheba Tanner, acting as a scribe for Beatriz Erickson PA-C. Provider Scribe Attestation: All medical record entries made by the Scribe were at my direction and personally dictated by me. I have reviewed the chart and agree that the record accurately reflects my personal performance of the history, physical exam, medical decision making, and the department course for this patient. I have also personally directed, reviewed, and agree with the discharge instructions and disposition. Disposition - Clinical Impression Clinical Impression: Hypertension Counseled Patient/Family Regarding: Studies Performed, Diagnosis, Need For Followup - Disposition Disposition: Routine/Home Disposition Time: 18:56 Condition: STABLE Additional Instructions: F/u with your primary care doctor (Dr. Seth Maya) for further evaluation of high blood pressure. Return to ER if your ROBERT worsens or your start to have chest pain, blurry vision or limb weakness. Instructions: High Blood Pressure (DC) Forms: [facility] (French) Print Language: SWEDISH
== END 2018-02-28 18:56 | disposition home or self-care (01) ==
LOC: H.ER 16:21
DX: I10 Essential (primary) hypertension (principal)

== ENCOUNTER 2018-05-11 21:06 | Emergency (ER) | payer MEDICAID ==
[2018-05-11 21:06] VITALS: BMI 53.6
[2018-05-11 21:17] VITALS: BP 152/85; PULSE 81; RESP 18; TEMP 97.8; O2SAT 99
--- NOTE | 2018-05-11 22:03 | ED PDOC ---
Lower Extremity Pain/Injury Time Seen by Provider: 05/11/18 21:33 Chief Complaint (Nursing): Lower Extremity Problem/Injury Chief Complaint (Provider): Lower Extremity Problem/Injury History Per: Patient History/Exam Limitations: no limitations Onset/Duration Of Symptoms: Sudden Onset Additional Complaint(s): 43 year old female with a past medical history of diverticulitis, who presents to the emergency department complaining of left foot pain that had sudden onset and is worse with walking. She states she has not taken any pain medications and is very hesitant to take them because of a family history of addiction. Patient denies having any falls, trauma, fever, chills, numbness, or tingling. She does admit to walking frequently. PMD: Dr Severino Fraire Past Medical History Reviewed: Historical Data, Nursing Documentation, Vital Signs Vital Signs: Last Vital Signs Temp 97.8 F 05/11/18 21:13 Pulse 81 05/11/18 21:13 Resp 18 05/11/18 21:13 BP 152/85 H 05/11/18 21:13 Pulse Ox 99 05/11/18 21:13 - Medical History PMH: Asthma, Migraine Denies: Chronic Kidney Disease - Surgical History Surgical History: No Surg Hx - Family History Family History: States: Unknown Family Hx, Hypertension - Immunization History Hx Tetanus Toxoid Vaccination: Yes Hx Influenza Vaccination: No Hx Pneumococcal Vaccination: No - Home Medications Home Medications: Ambulatory Orders Medication Instructions Recorded Ibuprofen [Motrin Tab] 800 mg PO Q8 PRN #20 tab 10/02/17 Dicyclomine [Dicyclomine HCl] 10 mg PO Q8 #10 cap 11/13/17 Ibuprofen [Motrin Tab] 600 mg PO BID #14 tab 01/18/18 traMADol [Ultram] 50 mg PO TID #7 tab 01/18/18 Ibuprofen [Motrin Tab] 600 mg PO Q6 PRN 7 Days tab 05/11/18 - Allergies Allergies/Adverse Reactions: Allergies Allergy/AdvReac Type Severity Reaction Status Date / Time mustard Allergy RASH Verified 02/28/18 16:40 Review of Systems ROS Statement: Except As Marked, All Systems Reviewed And Found Negative Constitutional: Negative for: Fever, Chills Musculoskeletal: Positive for: Foot Pain (left foot pain) Neurological: Negative for: Numbness (tingling) Physical Exam - Reviewed Nursing Documentation Reviewed: Yes Vital Signs Reviewed: Yes - Physical Exam Appears: Positive for: Non-toxic, No Acute Distress Head Exam: Positive for: ATRAUMATIC, NORMOCEPHALIC Pulses-Dorsalis Pedis (L): 2+ Pulses-Dorsalis Pedis (R): 2+ Extremity: Positive for: Normal ROM (Full ROM on all five toes and ankle with flexion and extension), Tenderness (point tenderness proximal to the 5th tarsal metatarsal joint), Capillary Refill (less than 2 seconds), Other (left foot: has a mild edema and ecchymosis to the left dorsal aspect of lateral left foot) Neurologic/Psych: Positive for: Alert, Oriented (x3) - ECG O2 Sat by Pulse Oximetry: 99 (RA) Pulse Ox Interpretation: Normal Medical Decision Making Medical Decision Making: Time: 2145 Plan: --Left foot xray --ED urine test --Tylenol 975 mg PO x1 - Podiatry consult X-ray reviewed by me: no acute fracture noted. Seen by Podiatry consult. OUMOU bandage and surgical shoe applied. Pt advised to f/u with Dr. Darling of Podiatry within the next week and Tylenol or Ibuprofen for pain. Scribe Attestation: Documented by Kurt Magana, acting as a scribe for Beatriz Miller PA-C. Provider Scribe Attestation: All medical record entries made by the Scribe were at my direction and personally dictated by me. I have reviewed the chart and agree that the record accurately reflects my personal performance of the history, physical exam, medic al decision making, and the department course for this patient. I have also personally directed, reviewed, and agree with the discharge instructions and disposition. Disposition - Clinical Impression Clinical Impression: Foot pain, left - Patient ED Disposition Is Patient to be Admitted: No Counseled Patient/Family Regarding: Studies Performed, Diagnosis, Need For Followup, Rx Given - Disposition Referrals: Ambrose Darling DPM [Staff Provider] - Disposition: Routine/Home Disposition Time: 23:54 Condition: STABLE Additional Instructions: F/u with Dr. Darling within the next week. Take Tylenol or Ibuprofen for pain. Use surgical shoe for comfort. Prescriptions: Ibuprofen [Motrin Tab] 600 mg PO Q6 PRN 7 Days tab PRN Reason: Pain, Moderate (4-7) Instructions: Metatarsalgia (DC) Forms: [facility] (Filipino) Print Language: JAMAICAN
--- NOTE | 2018-05-11 22:36 | CP.PCM.CON ---
History of Present Illness - History of Present Illness History of Present Illness: Podiatry consult note for dr. banerjee, 43 year old female with a past medical history of diverticulitis, seen and evaluated in the emergency department complaining of left foot pain that had sudden onset and is worse with walking. She states she has not taken any pain medications and is very hesitant to take them because of a family history of addiction. Patient denies having any falls, trauma, fever, chills, numbness, or tingling. She does admit to walking long distance in the last week. Patient is well known to the podiatry service. PMD: Dr Severino Fraire Past Patient History - Infectious Disease Hx of Infectious Diseases: None - Past Medical History & Family History Past Medical History?: No - Past Social History Smoking Status: Never Smoked - CARDIAC Hx Cardiac Disorders: No - PULMONARY Hx Asthma: Yes - NEUROLOGICAL Hx Migraine: Yes - HEENT Hx HEENT Problems: No - RENAL Hx Chronic Kidney Disease: No - ENDOCRINE/METABOLIC Hx Endocrine Disorders: No - HEMATOLOGICAL/ONCOLOGICAL Hx Blood Disorders: No - INTEGUMENTARY Hx Dermatological Problems: No - MUSCULOSKELETAL/RHEUMATOLOGICAL Hx Musculoskeletal Disorders: No - GASTROINTESTINAL Other/Comment: Diverticulosis - GENITOURINARY/GYNECOLOGICAL Hx Genitourinary Disorders: No - PSYCHIATRIC Hx Psychophysiologic Disorder: No Hx Substance Use: No - SURGICAL HISTORY Hx Surgeries: Yes Hx Eye Surgery: Yes (strabismus megan) Other/Comment: rt foot fasciotomy - ANESTHESIA Hx Anesthesia: Yes Hx Anesthesia Reactions: No Hx Malignant Hyperthermia: No Meds Home Medications: Home Medication List Medication Instructions Recorded Confirmed Type Ibuprofen [Motrin Tab] 600 mg PO Q6 PRN 7 Days tab 05/11/18 Rx Allergies/Adverse Reactions: Allergies Allergy/AdvReac Type Severity Reaction Status Date / Time mustard Allergy RASH Verified 02/28/18 16:40 Physical Exam - Constitutional Appears: Well, Non-toxic - Head Exam Head Exam: ATRAUMATIC - Extremities Exam Additional comments: left Lower extremity focused exam Vasc: DP/PT 2/4, cap refill < 3 sec in all digits. Temp gradient warm to warm. no edema or erythema noted Neuro: Protective sensation and gross sensation are intact. Derm: no open lesions, no clinical signs of infection, no erythema, no ecchymosis, no edema. MSK: pain on palpation to the medial calcaneal tubercle, pain on palpation to the lateral aspect of the midfoot. no pain with ROM of the foot and ankle joint Results - Vital Signs Recent Vital Signs: Last Vital Signs Temp 97.8 F 05/11/18 21:13 Pulse 81 05/11/18 21:13 Resp 18 05/11/18 21:13 BP 152/85 H 05/11/18 21:13 Pulse Ox 99 05/11/18 22:06 Assessment & Plan - Assessment and Plan (Free Text) Assessment: 43 yo female seen and evaluated in the ED for pain in the left lateral aspect of the foot; no trauma. Plan: Patient seen and evaluated X-rays reviewed and negative for fracture patient advised to ice the area Patient advised to elevate the left lower extremity Rx antiinflammatories. Left foot wrapped with OUMOU bandage and surgical shoe dispensed. Patient advised to return to the ED if symtpoms worsen Patient to follow up in podiatry clinic on monday morning.
--- NOTE | 2018-05-12 12:16 | RAD ---
Date of service: 05/11/2018 PROCEDURE: Left Foot Radiographs. HISTORY: Acute left foot pain 2 days duration. No antecedent history of trauma. Anatomic area of interest: Proximal aspect 5th metatarsal. COMPARISON: None. FINDINGS: BONES: Normal. No fracture. Large plantar calcaneal spur. JOINTS: Normal. SOFT TISSUES: Normal. OTHER FINDINGS: None. IMPRESSION: No acute findings related to/ accounting for the clinical presentation. Concordant results with the preliminary interpretation rendered by the emergency department physician procedure.
== END 2018-05-11 22:30 | disposition home or self-care (01) ==
LOC: H.ER 21:06
DX: M79.672 Pain in left foot (principal)

== ENCOUNTER 2018-06-10 12:29 | Emergency (ER) | payer MEDICAID ==
[2018-06-10 12:29] VITALS: BMI 53.6
[2018-06-10] MEDS ORDERED: Sodium Chloride 0.9% 1,000 ML IV ONE (12:49)
[2018-06-10 13:06] LABS: BASO % 0.1 % (0.0-2.0); EOS # 0.1 K/uL (0.0-0.7); EOS % 1.3 % (0.0-4.0); LYMPH # 0.4 K/uL (1.0-4.3); LYMPH % 4.4 % (20.0-40.0); MEAN CELL VOLUME 84.1 fl (81.0-99.0); MEAN CORPUSCULAR HEMOGLOBIN 29.9 pg (27.0-31.0); MEAN CORPUSCULAR HGB CONC 35.5 g/dL (33.0-37.0); MEAN PLATELET VOLUME 8.3 fl (7.2-11.7); MONO # 0.5 K/uL (0.0-0.8); MONO % 4.9 % (0.0-10.0); NEUT # 8.5 K/uL (1.8-7.0); NEUT % 89.3 % (50.0-75.0); NRBC % 0.1 % (0.0-0.0); PLATELET COUNT 180 K/uL (130-400); RBC 4.36 Mil/uL (3.80-5.20); RED CELL DISTRIBUTION WIDTH 13.6 % (11.5-14.5); WHITE BLOOD COUNT 9.5 K/uL (4.8-10.8)
[2018-06-10 13:06] LABS: SQUAMOUS EPITHIAL 14 /hpf (0-5); URINE BACTERIA RARE (<OCC); URINE BILIRUBIN NEGATIVE (NEGATIVE); URINE BLOOD MODERATE (NEGATIVE); URINE CLARITY CLOUDY (Clear); URINE COLOR YELLOW (YELLOW); URINE GLUCOSE (UA) NEG (NEGATIVE); URINE HYALINE CAST 0-2 /hpf (0-2); URINE LEUKOCYTE ESTERASE MOD Leu/uL (Negative); URINE PROTEIN 30 mg/dL (NEGATIVE); URINE UROBILINOGEN 0.2-1.0 mg/dL (0.2-1.0)
[2018-06-10 13:15] LABS: ALB/GLOB RATIO 1.3 (1.0-2.1); ALT/SGPT 33 U/L (9-52); AST/SGOT 23 U/L (14-36); BLOOD UREA NITROGEN 13 mg/dl (7-17); GFR NON-AFRICAN AMERICAN > 60; LIPASE 52 U/L (23-300)
--- NOTE | 2018-06-10 13:21 | ED PDOC ---
HPI: Abdomen Time Seen by Provider: 06/10/18 12:40 Chief Complaint (Nursing): Abdominal Pain Chief Complaint (Provider): Epigastric Pain, Diarrhea, Vomiting History Per: Patient History/Exam Limitations: no limitations Onset/Duration Of Symptoms: Days (x1) Outside of [place] travel?: No Current Symptoms Are (Timing): Still Present Additional Complaint(s): 43 year old female presents to the ED for evaluation of epigastric pain and nausea, vomiting, diarrhea. Patient reports she has diverticulosis and usually has one loose stool a day, but yesterday they became watery and constant. This morning, she states she woke up around 0100 with a sharp upper abdominal pain associated with six episodes of vomiting. Cannot tolerate PO. Patient notes that her daughter recently got over similar symptoms and had a GI bug for about three days. Otherwise, denies fever, chills, urinary symptoms, new medication / food use, recent antibiotic use, recent travel, and history of abdominal surgery. LNMP: 05/24/18 PMD: Francesco Past Medical History Reviewed: Historical Data, Nursing Documentation, Vital Signs Vital Signs: Last Vital Signs Temp 98.9 F 06/10/18 12:35 Pulse 95 H 06/10/18 12:35 Resp 16 06/10/18 12:35 BP 152/91 H 06/10/18 12:35 Pulse Ox 97 06/10/18 12:35 - Medical History PMH: Asthma, Migraine Denies: Chronic Kidney Disease Other PMH: Diverticulosis - Surgical History Other surgeries: bilateral lower extremity fasciotomies - Family History Family History: States: Hypertension - Living Arrangements Living Arrangements: With Family - Social History Current smoker - smoking cessation education provided: No Alcohol: None Drugs: Denies - Immunization History Hx Tetanus Toxoid Vaccination: Yes Hx Influenza Vaccination: No Hx Pneumococcal Vaccination: No - Home Medications Home Medications: Ambulatory Orders Medication Instructions Recorded Ibuprofen [Motrin Tab] 800 mg PO Q8 PRN #20 tab 10/02/17 Dicyclomine [Dicyclomine HCl] 10 mg PO Q8 #10 cap 11/13/17 Ibuprofen [Motrin Tab] 600 mg PO BID #14 tab 01/18/18 traMADol [Ultram] 50 mg PO TID #7 tab 01/18/18 Ibuprofen [Motrin Tab] 600 mg PO Q6 PRN 7 Days tab 05/11/18 Aluminum Hydroxide/Magnesium H 30 ml PO BID #100 ml 06/10/18 [Maalox 30 ml] Dicyclomine [Bentyl] 20 mg PO Q8 PRN #12 tab 06/10/18 Ondansetron ODT [Zofran ODT] 4 mg PO TID PRN #12 odt 06/10/18 - Allergies Allergies/Adverse Reactions: Allergies Allergy/AdvReac Type Severity Reaction Status Date / Time mustard Allergy RASH Verified 06/10/18 12:38 Review of Systems ROS Statement: Except As Marked, All Systems Reviewed And Found Negative Constitutional: Negative for: Fever, Chills Gastrointestinal: Positive for: Nausea, Vomiting (x6 episodes), Abdominal Pain (sharp epigastric), Diarrhea (watery) Genitourinary Female: Negative for: Dysuria, Frequency, Incontinence Physical Exam - Reviewed Nursing Documentation Reviewed: Yes Vital Signs Reviewed: Yes - Physical Exam Comments: GENERAL APPEARANCE: Patient is awake, alert, oriented x 3, in no obvious discomfort. Obese SKIN: Warm, dry; (-) cyanosis. EYES: (-) conjunctival pallor, (-) scleral icterus. ENMT: Mucous membranes moist. NECK: (-) tenderness, (-) stiffness, (-) lymphadenopathy. CHEST AND RESPIRATORY: (-) rales, (-) rhonchi, (-) wheezes; breath sounds equal bilaterally. HEART AND CARDIOVASCULAR: (-) irregularity; (-) murmur, (-) gallop. ABDOMEN AND GI: Soft, large obese abdomen, (-) distention. Bowel sounds active; (+) diffuse upper abdominal tenderness primarily in epigastric area, (-) guarding, (-) rebound, (-) palpable masses, (-) organomegaly, (-) CVA tenderness. Negative Bey's tenderness. EXTREMITIES: (-) deformity, (-) edema, (+) distal pulses. NEURO AND PSYCH: Mental status as above; (-) focal findings. - Laboratory Results Result Diagrams: 06/10/18 13:00 06/10/18 13:00 Lab Results: Total Bilirubin 0.8 mg/dl (0.2-1.3) 06/10/18 13:00 AST 23 U/L (14-36) 06/10/18 13:00 ALT 33 U/L (9-52) 06/10/18 13:00 Alkaline Phosphatase 67 U/L (38-126) 06/10/18 13:00 Total Protein 7.3 G/DL (6.3-8.2) 06/10/18 13:00 Albumin 4.0 g/dL (3.5-5.0) 06/10/18 13:00 Globulin 3.2 gm/dL (2.2-3.9) 06/10/18 13:00 Albumin/Globulin Ratio 1.3 (1.0-2.1) 06/10/18 13:00 Lipase 52 U/L (23-300) 06/10/18 13:00 Urine Color Yellow (YELLOW) 06/10/18 12:57 Urine Clarity Cloudy (Clear) 06/10/18 12:57 Urine pH 5.0 (5.0-8.0) 06/10/18 12:57 Ur Specific [place] 1.021 (1.003-1.030) 06/10/18 12:57 Urine Protein 30 mg/dL (NEGATIVE) 06/10/18 12:57 Urine Glucose (UA) Neg mg/dL (NEGATIVE) 06/10/18 12:57 Urine Ketones Negative mg/dL (NEGATIVE) 06/10/18 12:57 Urine Blood Moderate (NEGATIVE) 06/10/18 12:57 Urine Nitrate Negative (NEGATIVE) 06/10/18 12:57 Urine Bilirubin Negative (NEGATIVE) 06/10/18 12:57 Urine Urobilinogen 0.2-1.0 mg/dL (0.2-1.0) 06/10/18 12:57 Ur Leukocyte Esterase Mod Sudeep/uL (Negative) 06/10/18 12:57 Urine RBC (Auto) 12 /hpf (0-3) H 06/10/18 12:57 Urine Microscopic WBC 32 /hpf (0-5) H 06/10/18 12:57 Ur Squamous Epith Cells 14 /hpf (0-5) H 06/10/18 12:57 Urine Bacteria Rare (<OCC) 06/10/18 12:57 Hyaline Casts 0-2 /hpf (0-2) 06/10/18 12:57 - ECG O2 Sat by Pulse Oximetry: 97 (RA) Pulse Ox Interpretation: Normal Medical Decision Making Medical Decision Making: Time: 1249 Initial Impression: likely GI viral bug Initial Plan: --CMP --Lipase --U-preg --CBC with differential --Bentyl 20mg IM --Normal saline IV --Pepcid 20mg IVP --Zofran 4mg IVP --Urinalysis --Reevaluation 15:00 on re eval pt reports she didn't feel nauseous for a little, but now coming back and is gagging, she also reports abdominal pain is continuing and has not gotten any better, abdomen in soft, mild epigastric tenderness, no rebound or guarding plan --toradol, reglan IV and maalox PO --re eval 16:25 on re eval pt reports feeling much better and tolerating PO liquids with no pain or nausea labs wnl, pt's daughter with similar symptoms, no lower abdominal tenderness, currently abdomen is soft and non tender, likely viral gastroenteritis, pt is stable for dc Discussed results, diagnosis, treatment, return precautions and f/u with pt who is understanding, in agreement and stable for dc Scribe Attestation: Documented by Kristi Castaneda, acting as a scribe for Burt Cheatham PA-C. Provider Scribe Attestation: All medical record entries made by the Scribe were at my direction and personally dictated by me. I have reviewed the chart and agree that the record accurately reflects my personal performance of the history, physical exam, medical decision making, and the department course for this patient. I have also personally directed, reviewed, and agree with the discharge instructions and disposition. Disposition - Clinical Impression Clinical Impression: Gastroenteritis - Patient ED Disposition Is Patient to be Admitted: No Counseled Patient/Family Regarding: Studies Performed, Diagnosis, Need For Followup, Rx Given - Disposition Referrals: your, doctor Dr. Maya [Other] Disposition: Routine/Home Disposition Time: 16:28 Condition: IMPROVED Additional Instructions: Return to ED for new or worsening symptoms, fever >100.4, increasing severe pain, chest pain, unable to tolerate liquids. Follow up with your primary care doctor in 2-3 days. Take medications as prescribed. Rest, drink plenty of fluids to stay hydrate - water, gatorade. Eat a bland diet - BRAT (bananas, rice, applesauce, toast) Prescriptions: Aluminum Hydroxide/Magnesium H [Maalox 30 ml] 30 ml PO BID #100 ml Dicyclomine [Bentyl] 20 mg PO Q8 PRN #12 tab PRN Reason: Pain, Moderate (4-7) Ondansetron ODT [Zofran ODT] 4 mg PO TID PRN #12 odt PRN Reason: Nausea/Vomiting Instructions: Gastroenteritis (ED) Forms: [facility] (Azeri), [facility] ED School/Work Excuse Print Language: CITIZEN OF [place] - POA Present On Arrival: None
[2018-06-10 14:00] LABS: EOSINOPHIL 2 % (0-7); LYMPHOCYTE 6 % (20-50); MONOCYTE 4 % (0-10); NEUTROPHIL 88 % (42-75); PLATELET ESTIMATE NORMAL (NORMAL); TOTAL CELLS COUNTED 100
[2018-06-10] MEDS ORDERED: Alum-Mag Hydrox-Simethicone Susp (30 mL) PO ONE (15:01)
[2018-06-10] MEDS ORDERED: Alum-Mag Hydrox-Simethicone Susp (30 mL) ONE (15:17)
[2018-06-10 17:55] VITALS: RESP 17; TEMP 99.1
[2018-06-10 18:02] VITALS: BP 140/80; PULSE 94
[2018-06-10 18:08] VITALS: O2SAT 97
== END 2018-06-10 17:20 | disposition home or self-care (01) ==
LOC: H.ER 12:29
DX: K52.9 Noninfective gastroenteritis and colitis, unspecified (principal)
CPT/HCPCS: 80053; 81003; 81025; 83690; 85025; 96374; 96375; 99284; J1885; J2405; J2765; J7040